=== PATIENT | male | born 1970 | race Caucasian/White ===

== ENCOUNTER 2018-04-29 20:25 | Emergency (ER) | payer BC ==
[2018-04-29 20:46] VITALS: BP 146/74; PULSE 87; RESP 18; TEMP 97.5
--- NOTE | 2018-04-29 21:16 | ED ---
General Adult HPI - General Chief complaint: Upper Respiratory Infection Stated complaint: Congestion, Coughing up a lot Time Seen by Provider: 04/29/18 20:39 Source: patient, RN notes reviewed Mode of arrival: ambulatory Limitations: no limitations - History of Present Illness Initial comments: This is a 48-year-old male who presents to the emergency department with chief complaint of cough. Patient reports a history of smoking. He states that 3 weeks ago he was treated by his primary care provider for bronchitis. He states he did a course of steroids and was placed on an antibiotic, however he is unsure of the name. He states that he will never take steroids again as they made him "ignorant and mean." Patient states that he was noticing improvement in his symptoms and then developed pain in the bases of both his lungs 1 week ago. He states that this is now improving. He states he continues to have a productive cough of white sputum and needs a note to be excused from work for the next couple of days to rest. Patient denies any fevers or chills, chest pain or shortness of breath, runny nose or sore throat, abdominal pain, nausea or vomiting. - Related Data Previous Rx's Medication Instructions Recorded Albuterol Inhaler [Ventolin Hfa 1 - 2 puff INHALATION Q6HR #1 04/29/18 Inhaler] inhaler Allergies Allergy/AdvReac Type Severity Reaction Status Date / Time No Known Allergies Allergy Verified 04/29/18 20:46 Review of Systems ROS Statement: Those systems with pertinent positive or pertinent negative responses have been documented in the HPI. ROS Other: All systems not noted in ROS Statement are negative. Past Medical History Past Medical History: No Reported History History of Any Multi-Drug Resistant Organisms: None Reported Past Surgical History: No Surgical Hx Reported Past Psychological History: Anxiety Smoking Status: Current every day smoker Past Alcohol Use History: Occasional Past Drug Use History: Marijuana General Exam - General Exam Comments Initial Comments: General: Awake and alert, well-developed; in no apparent distress. HEENT: Head atraumatic, normocephalic. Pupils are equal, round and reactive to light. Extraocular movements intact. Oropharynx moist without erythema or exudate. Neck: Supple. Normal ROM. Cardiovascular: Regular rate and rhythm. No murmurs, rubs or gallops. Chest symmetrical. Respiratory: Lungs clear to auscultation bilaterally. No wheezes, rales or rhonchi. Normal respiratory effort with no use of accessory muscles. Musculoskeletal: Normal ROM, no tenderness bilateral upper and lower extremities. Ambulating normally. Skin: [place], warm and dry without rashes or lesions. Neurological: Alert and oriented x3. CN II-XII grossly intact. Speech is fluent and answers are appropriate. No focal neuro deficits. Psychiatric: Normal mood and affect. No overt signs of depression or anxiety noted. Limitations: no limitations Course Vital Signs 04/29/18 04/29/18 20:42 20:47 Temperature 97.5 F L Pulse Rate 87 Respiratory 18 18 Rate Blood Pressure 146/74 O2 Sat by Pulse 96 Oximetry Medical Decision Making - Medical Decision Making This is a 48-year-old male who presents to the emergency department with chief complaint of cough. Patient is a current, every day smoker. He reports a productive cough of white sputum for the past 3 weeks. He was treated for bronchitis when symptoms first started with antibiotics and steroids. Patient states that he continues to have a productive cough. Denies any fevers or chills. Lungs are clear to auscultation, however due to patient's persistent symptoms I did recommend a chest x-ray. Patient refuses. He does not want an x -ray performed. Patient will be provided with an albuterol inhaler. He vital signs are stable and he is in no acute distress. He will be discharged home at this time. Patient is in agreement with plan and voices understanding. All questions were answered. Disposition Clinical Impression: Bronchitis Disposition: HOME SELF-CARE Condition: Good Instructions: Chronic Bronchitis (ED) Additional Instructions: Please take medications as prescribed. Please follow up with primary care provider within 1-2 days. Return to emergency department if symptoms should worsen or any concerns arise. Prescriptions: Albuterol Inhaler [Ventolin Hfa Inhaler] 1 - 2 puff INHALATION Q6HR #1 inhaler Is patient prescribed a controlled substance at d/c from ED?: No Referrals: Teresa Owens MD [Primary Care Provider] - 1-2 days Time of Disposition: 21:15
== END 2018-04-29 21:15 | disposition home or self-care (01) ==
LOC: EC 20:25
DX: J40 Bronchitis, not specified as acute or chronic (principal); F17.200 Nicotine dependence, unspecified, uncomplicated
CPT/HCPCS: 99283

== ENCOUNTER → 2022-02-27 | Outpatient (CLI) | payer OTHER ==
[2022-02-27 14:40] LABS: HCT 48.2 % (39.6-50.0); HGB 16.2 g/dL (13.0-17.0); MCHC 33.6 g/dL (32.0-37.0); MCV 95.1 fL (80.0-97.0); Mean Platelet Volume 10.2 fL (9.5-12.2); NRBC Per 100 WBC 0 /100 WBCS (0.0-0.0); Platelet Count 178 X 10*3/uL (140-440); RBC 5.07 X 10*6/uL (4.40-5.60); RDW 13.4 % (11.5-14.5); WBC 8.14 X 10*3/uL (4.50-10.00)
[2022-02-27 15:14] LABS: T4, Free (Free Thyroxine) 1.49 ng/dL (0.800-1.800)
[2022-02-27 16:05] LABS: African American GFR (CKD) 112.6 (60.0-200.0); Albumin 4.8 g/dL (3.8-4.9); Albumin/Globulin Ratio 2.29 (1.60-3.17); Anion Gap 14.7 mmol/L (10.00-18.00); BUN/Creat Ratio 11.67 Ratio (12.00-20.00); Blood Urea Nitrogen 10.5 mg/dL (9.0-27.0); Calcium 9.7 mg/dL (8.7-10.3); Carbon Dioxide 22.3 mmol/L (20.0-27.5); Globulin 2.1 g/dL (1.6-3.3); Non-African American GFR(CKD) 97.2 (60.0-200.0); Potassium 4.1 mmol/L (3.5-5.5); Total Bilirubin 1.4 mg/dL (0.30-1.20); Total Protein 6.9 g/dL (6.2-8.2)
== END | disposition home or self-care (01) ==
LOC: LABWHC1 08:02
PROVIDERS: ATTEND Psychiatry & Neurology Neurology
DX: M62.81 Muscle weakness (generalized) (principal); R53.83 Other fatigue; F10.20 Alcohol dependence, uncomplicated
CPT/HCPCS: 36415; 80053; 82607; 84207; 84439; 84443; 84481; 85027

== ENCOUNTER 2022-04-27 05:07 | Inpatient (IN) | payer OTHER ==
[2022-04-27] MEDS ORDERED: MORPHINE SULFATE 4 MG/ML SYRINGE IV STA (05:13)
--- NOTE | 2022-04-27 05:15 | ED ---
General Adult HPI - General Stated complaint: Fall Time Seen by Provider: 04/27/22 05:07 - History of Present Illness Initial comments: Dictation was produced using [employer] dictation software. please excuse any grammatical, word or spelling errors. Chief Complaint: 52-year-old male presents with right shoulder pain after fall History of Present Illness: Is a 52-year-old male he denies any history. Patient states he's in emergency Department after hurting his right shoulder. Patient states he was walking when he lost his balance. Caused him to fall forwards however he landed on his back. She complaining of right shoulder pain. Denies any head pain or neck pain. No loss of consciousness. Patient does not take any anticoagulation medications. Lives at home with his sister. He is able to care for himself. Patient reports that he uses a cane in order to help him work out. The ROS documented in this emergency department record has been reviewed and confirmed by me. Those systems with pertinent positive or negative responses have been documented in the HPI. All other systems are other negative and/or noncontributory. PHYSICAL EXAM: General Impression: Alert and oriented x3, not in acute distress HEENT: Normocephalic atraumatic, extra-ocular movements intact, pupils equal and reactive to light bilaterally, mucous membranes moist. Cardiovascular: Heart regular rate and rhythm Chest: Able to complete full sentences, no retractions, no tachypnea Abdomen: abdomen soft, non-tender, non-distended, no organomegaly Right shoulder: Significant for tenderness to the right anterior humerus head. right upper extremity is neurovascularly intact Musculoskeletal: Pulses present and equal in all extremities, no peripheral edema Motor: no focal deficits noted Neurological: CN II-XII grossly intact, no focal motor or sensory deficits noted Skin: Intact with no visualized rashes Psych: Normal affect and mood ED course: 52-year-old male presents emergency department for right shoulder pain after fall. Signs upon arrival are within acceptable limits. Patient given IV morphine. Shoulder x-ray shows impacted humeral neck fracture. Patient placed in a coaptation splint and arm sling. After arm sling was placed at around 5:50 AM patient states that he did feel like he has a mild headache from the fall. CT of the brain shows no intracranial injuries. There is some cerebral atrophy. right occipital lobe suggestive of a 2 cm infarct. Also evidence of old lacunar infarct. No neck injuries. EMS when they arrived reports that patient's living situation is very disheveled. He is unkempt and likely unable to care for himself. He is being covered in his urine and was lying down on the ground for several hours until his sister called EMS. Multiple attempts were made in order to try and contact patient's son and sister who he supposedly lives with. Was unsuccessful contacting patient's family by phone. At this point it is unclear if patient has a safe disposition. Does have this evidence of infarct to the brain that is unclear of its acuity. Patient be admitted with consultation to neurology. CBC and metabolic panel is unremarkable. - Related Data Home Medications Medication Instructions Recorded Confirmed No Known Home Medications 04/27/22 04/27/22 Allergies Allergy/AdvReac Type Severity Reaction Status Date / Time No Known Allergies Allergy Verified 04/27/22 12:08 Review of Systems ROS Statement: Those systems with pertinent positive or pertinent negative responses have been documented in the HPI. ROS Other: All systems not noted in ROS Statement are negative. Past Medical History Past Medical History: No Reported History History of Any Multi-Drug Resistant Organisms: None Reported Past Surgical History: No Surgical Hx Reported Past Psychological History: Anxiety Past Alcohol Use History: Occasional Past Drug Use History: Marijuana Course Vital Signs 04/27/22 04/27/22 04/27/22 05:13 08:41 12:47 Temperature 98.6 F Pulse Rate 90 101 H 88 Respiratory 15 16 15 Rate Blood Pressure 102/66 106/65 110/61 O2 Sat by Pulse 99 100 100 Oximetry Procedures - Orthopedic Splinting/Casting Injury #1 Side: right Upper Extremity Injury Location: shoulder Upper Extremity Immobilizer: sling/shoulder immobilizer (coapt splint) Medical Decision Making - Lab Data Result diagrams: 05/02/22 08:37 05/02/22 08:37 Disposition Clinical Impression: Humerus fracture, Debility Disposition: ADMITTED IP TO THIS HOSP Is patient prescribed a controlled substance at d/c from ED?: Yes If prescribed controlled substance>3 days was MAPS reviewed?: Prescribed <3 Days
--- NOTE | 2022-04-27 05:32 | XR ---
EXAMINATION TYPE: XR shoulder limited RT DATE OF EXAM: 04/27/2022 COMPARISON: NONE HISTORY: Shoulder pain TECHNIQUE: 2 views FINDINGS: Exam limited by the positioning. There is impacted humeral neck fracture. No dislocation. S capula is intact. IMPRESSION: Impacted humeral neck fracture. No dislocation
[2022-04-27] MEDS ORDERED: ACET/COD 300 MG/30 MG STARTER PACK 6 TAB BTL PO STA (05:51)
--- NOTE | 2022-04-27 06:39 | CT ---
EXAMINATION TYPE: CT brain cspine wo con DATE OF EXAM: 04/27/2022 COMPARISON: None HISTORY: fall CT DLP: 1370.1 mGycm Automated exposure control for dose reduction was used. Images of the brain and cervical spine obtained with no contrast. Ventricles of normal size. There is no mass effect nor midline shift. There is some hypodensity in th e medial anterior right occipital lobe. No evidence of intracranial hemorrhage. There is some hypoden sity also in the right posterior frontal lobe white matter. There is some mild posterior temporal lob e white matter hypodensity bilaterally that could be microvascular ischemia. The cervical vertebra have fairly normal spacing and alignment. There is mild spurring of the endplat es. Posterior elements are intact. There is mild cervical hypertrophic facet arthropathy. No compress ion fracture. The skull base is intact. There is normal aeration of the mastoid sinuses. IMPRESSION: There is some cerebral atrophy. There is hypodensity in the right occipital lobe suggestive of a 2 cm infarct. There is also some subtle hypodensity right posterior frontal lobe white matter suggestive of lacunar infarct. There is likely some microvascular ischemia. Hypertrophic mild degenerative disc changes in the cervical spine. No fracture.
[2022-04-27] MEDS ORDERED: NALOXONE 0.4 MG/ML 1 ML VIAL IV PRN (06:58)
[2022-04-27] MEDS ORDERED: ONDANSETRON 4 MG/2 ML VIAL IVP PRN (06:58)
[2022-04-27] MEDS ORDERED: ASPIRIN 81 MG PO STA (07:02)
[2022-04-27 08:29] LABS: Basophils # (A) 0.1 k/uL (0-0.2); Basophils % (A) 1 %; Eosinophils # (A) 0.1 k/uL (0-0.7); Eosinophils % (A) 1 %; HGB 13.7 gm/dL (13.0-17.5); Lymphocytes # (A) 0.5 k/uL (1.0-4.8); Lymphocytes % (A) 4 %; MCHC 34.2 g/dL (31.0-37.0); MCV 93.7 fL (80.0-100.0); Mean Platelet Volume 7.9; Monocytes # (A) 0.6 k/uL (0-1.0); Monocytes % (A) 6 %; Neutrophils # (A) 9.5 k/uL (1.3-7.7); Neutrophils % (A) 88 %; Platelet Count 163 k/uL (150-450); RBC 4.27 m/uL (4.30-5.90); RDW 13.5 % (11.5-15.5); WBC 10.8 k/uL (3.8-10.6)
[2022-04-27] MEDS: SODIUM CHLORIDE 0.9% 1,000 ML IV SCH (08:39)
[2022-04-27] MEDS: MORPHINE SULFATE 4 MG/ML SYRINGE IV PRN ×3 (09:36→20:55)
[2022-04-27 11:11] LABS: African American GFR (CKD) >90 (>60 ml/min/1.73 sqM); Alcohol <10 mg/dL; Anion Gap 15 mmol/L; Blood Urea Nitrogen 16 mg/dL (9-20); Calcium 9.1 mg/dL (8.4-10.2); Carbon Dioxide 20 mmol/L (22-30); Chloride 101 mmol/L (98-107); Creatine Kinase 148 U/L (55-170); Glucose 119 mg/dL (74-99); Non-African American GFR(CKD) 86 (>60 ml/min/1.73 sqM); Potassium 4.3 mmol/L (3.5-5.1); Sodium 136 mmol/L (137-145)
--- NOTE | 2022-04-27 11:28 | P.CNOR ---
History of Present Illness - [facility] Consult date: 04/27/22 Requesting physician: Davion Fam Consult reason: other (humerus fracture) History of present illness: Patient is a 52-year-old male who presents to the emergency department this morning after falling onto his right shoulder. Patient states when he was walking a loss balance and fell onto his right shoulder. Patient rates the pain as 8/10. Patient denies radiation of pain. Patient denies pain in any other locations. Patient denies any other medical history/previous orthopedic surgery. Patient denies hitting his head/losing consciousness. Patient says he does live with his sister at home. Patient says he does use a cane during ambulation sometimes. Patient denies chest pain, fever, shortness breath, nausea, vomiting, change in vision, loss of bowel/bladder control. Patient denies any numbness tingling down the right upper extremity Past Medical History Past Medical History: No Reported History History of Any Multi-Drug Resistant Organisms: None Reported Past Surgical History: No Surgical Hx Reported Past Psychological History: Anxiety Past Alcohol Use History: Occasional Past Drug Use History: Marijuana Medications and Allergies Home Medications Medication Instructions Recorded Confirmed Type Albuterol Inhaler [Ventolin Hfa 1 - 2 puff INHALATION Q6HR #1 04/29/18 Rx Inhaler] inhaler Allergies Allergy/AdvReac Type Severity Reaction Status Date / Time No Known Allergies Allergy Verified 04/27/22 05:12 Physical Examination Inspection: Negative for any open fractures, significant erythema/ulcers. Some ecchymosis present around the right shoulder Sensation: Sensation is equal, symmetric, bilaterally intact throughout the upper and lower extremities Palpation: Patient does have moderate TTP diffusely throughout the right shoulder especially in the proximal humeral region. Nontender to palpation throughout rest exam Range of motion: Full range of motion bilateral lower extremities and left upper extremity on exam. Full range of motion in right wrist flexion/extension. Limit range of motion and right shoulder due to fracture and right elbow extension/flexion due to pain referred from shoulder Motor: 5/5 in all major motor groups in bilateral lower extremities and left upper extremity. 3/5 in resisted right elbow flexion/extension and right wrist flexion/extension. Right shoulder motor exam not performed due to fracture/pain . Neurovascular status: Radial pulse intact, 2+ bilaterally. Cap refill under 3 seconds in digits of upper extremities. Special tests: Negative Homans bilaterally; negative Jaime bilaterally; ne gative clonus bilaterally Results - Labs Labs: Abnormal Lab Results - Last 24 Hours (Table) 04/27/22 Range/Units 08:15 WBC 10.8 H (3.8-10.6) k/uL RBC 4.27 L (4.30-5.90) m/uL Neutrophils # 9.5 H (1.3-7.7) k/uL Lymphocytes # 0.5 L (1.0-4.8) k/uL H & H 04/27/22 Range/Units 08:15 Hgb 13.7 (13.0-17.5) gm/dL Hct 40.0 (39.0-53.0) % Result Diagrams: 04/27/22 08:15 04/27/22 10:30 Assessment and Plan Assessment: 1. Proximal humerus fracture, right upper extremity Plan: 1. Proximal humerus fracture, right upper extremity - at this time we recommend patient to use sling to right upper extremity at all times. At this time orthopedics is not recommending any emergent/urgent orthopedic surgical intervention. We do recommend conservative measures via the use of a sling and pain control. Patient may follow-up in the outpatient setting with Dr. Romero for further evaluation of right shoulder. We'll continue to follow patient during his stay in hospital. 2. Appreciate medical management 3. Pain management - Tylenol; morphine 4. DVT prophylaxis - mechanical 5. GI recs 6. PT/OT - nonweightbearing right upper extremity. Maintain right upper e xtremity in sling at all times. 7. Appreciate consult Time with Patient: Less than 30
--- NOTE | 2022-04-27 14:16 | US ---
EXAMINATION TYPE: US carotid duplex BILAT DATE OF EXAM: 04/27/2022 COMPARISON: NONE CLINICAL HISTORY: CVA. TECHNIQUE: Carotid duplex ultrasound examination. Indirect Doppler criteria was utilized. FINDINGS: EXAM MEASUREMENTS: RIGHT: Peak Systolic Velocity (PSV) cm/sec ----- Right CCA: 54.9 ----- Right ICA: 78.2 ----- Right ECA: 72.9 ICA/CCA ratio: 1.4 RIGHT: End Diastole cm/sec ----- Right CCA: 13.9 ----- Right ICA: 28.4 ----- Right ECA: 11.0 LEFT: Peak Systolic Velocity (PSV) cm/sec ----- Left CCA: 60.1 ----- Left ICA: 87.5 ----- Left ECA: 66.8 ICA/CCA ratio: 1.5 LEFT: End Diastole cm/sec ----- Left CCA: 16.5 ----- Left ICA: 32.5 ----- Left ECA: 11.9 VERTEBRALS (direction of flow): Right Vertebral: Antegrade Left Vertebral: Antegrade Rhythm: Normal [employer] NOTES: Mild atherosclerotic plaque with no significant velocity increases. IMPRESSION: There is antegrade flow in the vertebral arteries. The images and measurements suggest less than 10% stenosis in both internal carotid arteries. Criteria for Assigning % of Stenosis / Diameter reduction (Estimation based on the indirect measurements of the internal carotid artery velocities (ICA PSV). 1. Normal (no stenosis)=ICA PSV < 125 cm/s: ratio < 2.0: ICA EDV<40 cm/s. 2. Less than 50% stenosis=ICA PSV < 125 cm/s: ratio < 2.0: ICA EDV<40 cm/s. 3. 50 to 69% stenosis=ICA PSV of 125 to 230 cm/s: ration 2.0 ? 4.0: ICA EDV 40-100 cm/s. 4. Greater than 70% stenosis to near occlusion= ICA PSV > 230 cm/s: ratio > 4.0: ICA EDV > 100 cm/s. 5. Near occlusion= ICA PSV velocities may be low or undetectable: variable ratio and ICA EDV. 6. Total occlusion=unable to detect flow.
--- NOTE | 2022-04-27 15:01 | P.HPIM ---
History of Present Illness H&P Date: 04/27/22 Leo James, is a 52-year-old male who presented to the [facility] emergency room with a chief complaint of confusion and mental status changes. Patient had a fall backwards few days ago and x-ray of the right shoulder revealed impacted humeral neck fracture, family states that patient was confused. Computed tomography scan of the brain revealed evidence of hypodensity in the right occipital lobe suggestive of an infarct and subtle hypodensity in the right posterior frontal lobe white matter suggestive of lacunar infarct patient and family he denies any previous history of strokes, he was admitted to telemetry floor and neurology consultation was requested. Patient denies any significant past medical history in the past, he denies any history of hypertension hyperlipidemia, or any history of coronary artery disease strokes or seizures in the past, he is not maintained on any home medications, he states that he smokes a few cigarettes per day, he used to smoke more in the past but has been cutting down, he denies any alcohol abuse. He was evaluated in the emergency room vital examination on presentation revealed a temperature of 98.6 pulse 90 respiration 15 blood pressure 102/66 pulse ox 99% on room air Laboratory data revealed a white blood count of 10.8 hemoglobin 13.7 platelet count 163 sodium 136 potassium 4.3 chloride 101 CO2 20 BUN 16 creatinine 1.2 g lucose level 119 Patient was admitted to telemetry floor for further evaluation and treatment Past Medical History Past Medical History: No Reported History History of Any Multi-Drug Resistant Organisms: None Reported Past Surgical History: No Surgical Hx Reported Past Psychological History: Anxiety Past Alcohol Use History: Occasional Past Drug Use History: Marijuana Medications and Allergies Home Medications Medication Instructions Recorded Confirmed Type No Known Home Medications 04/27/22 04/27/22 History Allergies Allergy/AdvReac Type Severity Reaction Status Date / Time No Known Allergies Allergy Verified 04/27/22 12:08 Physical Exam Vitals: Vital Signs Temp Pulse Resp BP Pulse Ox 04/27/22 12:47 88 15 110/61 100 04/27/22 08:41 101 H 16 106/65 100 04/27/22 05:13 98.6 F 90 15 102/66 99 Intake and Output 04/26/22 04/27/22 04/27/22 22:59 06:59 14:59 Other: Weight 72.575 kg In general patient is alert and oriented x3 in no distress HEENT head normocephalic and atraumatic Neck is supple no JVD no goiter no lymphadenopathy no carotid bruit Chest examination is clear to auscultation no crackles no wheezing Cardiac exam reveals regular heart sounds S1 and S2 no gallops no murmurs Abdomen is soft nontender no organomegaly with normal bowel sounds Extremity exam reveals no edema no cyanosis or clubbing Neurological examination reveals no gross focal deficits Results CBC & Chem 7: 04/27/22 08:15 04/27/22 10:30 Labs: Abnormal Lab Results - Last 24 Hours (Table) 04/27/22 04/27/22 Range/Units 08:15 10:30 WBC 10.8 H (3.8-10.6) k/uL RBC 4.27 L (4.30-5.90) m/uL Neutrophils # 9.5 H (1.3-7.7) k/uL Lymphocytes # 0.5 L (1.0-4.8) k/uL Sodium 136 L (137-145) mmol/L Carbon Dioxide 20 L (22-30) mmol/L Glucose 119 H (74-99) mg/dL Assessment and Plan Plan: 1. Confusion with mental status changes, cause is not entirely clear, but to be related to areas of stroke on computed tomography scan however, strokes may be old and other causes of mental status changes need to be ruled out, at this time will check urine toxicology screen, check urine analysis and chest x-ray 2. Evidence of 2 areas of stroke on computed tomography scan of the brain, exact timing of the strokes is not clear, patient denies any knowledge of any previous stroke, neurology consultation has been requested, echocardiogram and carotid Doppler were ordered, aspirin and Lipitor were added to medication regimen, will follow closely. 3. Mild leukocytosis, will check chest x-ray and urine analysis 4. Evidence of impacted right humeral neck fracture, orthopedic consultation requested Medication and labs were reviewed For DVT prophylaxis SCD stockings Will follow in a.m.
--- NOTE | 2022-04-27 15:39 | MR ---
EXAMINATION TYPE: MR brain wo con DATE OF EXAM: 04/27/2022 COMPARISON: None HISTORY: Multiple strokes, ? subacute or old, fall Multiplanar multiecho imaging of the brain without contrast. There is some cerebral cortical atrophy. There is no mass effect or midline shift. There are some mil d patchy areas of increased signal on the diffusion images in the centrum semiovale bilaterally. Thes e also have increased signal on the T2 and FLAIR images. No evidence of intracranial hemorrhage. Brai nstem is intact. There is extensive coalescent increased signal on the T2 and FLAIR images in the white matter of both temporal lobes and also extension into the left occipital lobe. There is also involvement of the fro ntal lobe white matter. The cerebellum is intact. There is thinning of the corpus callosum with areas of increased signal. Sella turcica is intact. No evidence of orbital mass. IMPRESSION: Extensive white matter signal changes could relate to severe demyelinating disease. There is involvem ent of the corpus callosum. Microvascular ischemia not excluded. Increased signal in the centrum semi ovale bilaterally on the diffusion images could BE acute disease.
--- NOTE | 2022-04-27 15:45 | XR ---
EXAMINATION TYPE: XR chest 2V DATE OF EXAM: 04/27/2022 COMPARISON: NONE HISTORY: Confusion TECHNIQUE: 2 view FINDINGS: Heart is normal. Lungs are clear. Diaphragm is normal. Bony thorax is intact. IMPRESSION: Normal chest
--- NOTE | 2022-04-27 15:49 | CA ---
Transthoracic Echo Report Name: Leo James Age: 52 Gender: M : 1970 Exam Date: 04/27/2022 12:38 Exam Location: [facility] Ht (in): 73 Wt (lb): 180 Ordering Physician: Thelma Kirk MD Attending/Referring Phys: Data Center Engineer Vee Causey RDCS Procedure CPT: Indications: multiple strokes, embolic Cardiac Hx: Technical Quality: Technically difficult study Contrast 1: Lumason Total Dose (mL): 4 Contrast 2: Total Dose (mL): MEASUREMENTS (Male / Female) Normal Values 2D ECHO LV Diastolic Diameter PLAX 4.2 cm 4.2 - 5.9 / 3.9 - 5.3 cm LV Systolic Diameter PLAX 2.4 cm IVS Diastolic Thickness 1.0 cm 0.6 - 1.0 / 0.6 - 0.9 cm LVPW Diastolic Thickness 1.1 cm 0.6 - 1.0 / 0.6 - 0.9 cm LV Relative Wall Thickness 0.5 RV Internal Dim ED PLAX 3.0 cm M-MODE Aortic Root Diameter MM 3.9 cm LA Systolic Diameter MM 2.1 cm LA Ao Ratio MM 0.5 AV Cusp Separation MM 1.9 cm DOPPLER AV Peak Velocity 81.2 cm/s AV Peak Gradient 2.6 mmHg LVOT Peak Velocity 60.8 cm/s LVOT Peak Gradient 1.5 mmHg MV Area PHT 3.0 cm??? Mitral E Point Velocity 43.6 cm/s Mitral A Point Velocity 55.6 cm/s Mitral E to A Ratio 0.8 MV Deceleration Time 251.7 ms TR Peak Velocity 139.3 cm/s TR Peak Gradient 7.8 mmHg FINDINGS Left Ventricle Normal Left ventricular size, wall thickness, systolic function with no obvious regional wall motion abnormalities. Normal Left ventricular diastolic filling pattern. Left ventricular ejection fraction is estimated at 55-60 %. Right Ventricle Normal right ventricular size and function. Right ventricular systolic pressure within normal limits. Right Atrium Right atrium not well visualized. Left Atrium Normal left atrial size. Mitral Valve No mitral stenosis, regurgitation or prolapse. Aortic Valve No aortic valve stenosis or regurgitation. Tricuspid Valve Mild tricuspid regurgitation. Pulmonic Valve Trace pulmonic regurgitation. Pericardium No pericardial effusion. Aorta Normal size aortic root and proximal ascending aorta. CONCLUSIONS Technically difficult study for interpretation Normal left ventricular systolic function Previewed by: Dr. Tyron Murray MD (Electronically Signed) Final Date: 27 April 2022 15:48
[2022-04-27] MEDS: ATORVASTATIN 20 MG TAB PO SCH (20:52)
[2022-04-27 21:21] LABS: Appearance,Urine Cloudy (Clear); Bacteria,Urine Occasional /hpf; Bilirubin,Urine 1+ (Negative); Blood,Urine Negative (Negative); Budding Yeast,Urine Moderate /hpf; Color,Urine Yellow; Glucose,Urine (UA) Negative (Negative); Hyaline Casts,Urine 6 /lpf (0-2); Ketones,Urine 2+ (Negative); Leukocyte Esterase,Urine Negative (Negative); Mucus,Urine Moderate /hpf; Nitrite,Urine Negative (Negative); PH, Urine 5.5 (5.0-8.0); Protein,Urine 1+ (Negative); RBC,Urine 3 /hpf (0-5); Specific Gravity,Urine 1.025 (1.001-1.035); Squamous Epithelial Cell,Urine <1 /hpf (0-4); WBC,Urine 6 /hpf (0-5)
--- NOTE | 2022-04-27 22:58 | P.CNNES ---
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 As per EMS flow sheet when they arrived, found patient laying face down on the floor. Patient mentioned that he was walking, and his legs give out and he fell face first into the liter box for the cat. Patient denied any loss of consciousness, head or neck or back pain. He was complaining of right shoulder pain 10/10. The pain improved after he was moved out of his right shoulder, with pain level down to 3/10. Patient's blood pressure at the scene was 111/62 pulse is 70, respirations 16 and saturation 99%. Patient at present concurs that yesterday he was standing, when his legs gave out and he fell, landing on the right side. He denies any loss of consciousness or passing out. No tongue bite. He claims that he did lose bowel control. Patient says that he has suffered from falls in the past, but not like this. He states that the last fall occurred several weeks ago, when he was going into the shower and he slipped. He did not hurt himself. He could not tell if he had any more falls besides these 2 mentioned above. He lives with his sister. His sister called the ambulance. Patient's blood test shows normal hemoglobin, WBC 10.8. Patient's last A1c 5.3 on 10/24/2021. Chem-7 was normal on 02/27/2022. B12 480, vitamin B6 was 6, TFTs normal. CT head showed some cerebral atrophy. There is hypodensity in the right occipital lobe suggestive of a 2 cm infarct. There is also some subtle hypodensity right posterior frontal lobe white matter suggestive of lacunar infarct. There is likely some microvascular ischemia. I personally reviewed computed tomography scan of the head, and appears chronic in nature. No acute ischemic stroke. There are 3 areas, one involving the right medial occipital lobe, small area involving the left occipital subcortical region and also chronic ischemic change involving the right posterior temporal region. CT of the cervical spine showed hypertrophic mild degenerative disc changes in the cervical spine. No fracture. EKG shows sinus tachycardia with occasional ventricle or premature complexes. Shoulder x-ray shows impacted humeral neck fracture. No dislocation. Patient's home medications not available. Patient states that he has smoked 1 pack per day since in his 20s. Just in the last 1 year, he has cut back to half pack per day. He quit marijuana 2 years ago. Denies any drug use. He was a heavy drinker for many years, stopped alcoholism one year ago. Denies diabetes or any previous history of stroke TIA. Review of Systems Constitutional: Denies chills, Denies fever Eyes: denies blurred vision, denies pain Ears: deny: decreased hearing Ears, nose, mouth and throat: Denies headache, Denies sore throat Cardiovascular: Denies chest pain, Denies shortness of breath Respiratory: Denies cough Gastrointestinal: Denies abdominal pain, Denies diarrhea, Denies nausea, Denies vomiting Musculoskeletal: Denies myalgias Musculoskeletal: right: shoulder pain, shoulder swelling Integumentary: Denies pruritus, Denies rash Neurological: Reports as per HPI Psychiatric: Denies anxiety, Denies depression Endocrine: Denies fatigue, Denies weight change Hematologic/Lymphatic: Denies easy bruising Past Medical History Past Medical History: No Reported History History of Any Multi-Drug Resistant Organisms: None Reported Past Surgical History: No Surgical Hx Reported Past Psychological History: Anxiety Past Alcohol Use History: Occasional Past Drug Use History: Marijuana Medications and Allergies Home Medications Medication Instructions Recorded Confirmed Type No Known Home Medications 04/27/22 04/27/22 History Allergies Allergy/AdvReac Type Severity Reaction Status Date / Time No Known Allergies Allergy Verified 04/27/22 12:08 Physical Examination - Vital Signs Vital Signs: Vital Signs Temp Pulse Resp BP Pulse Ox 04/27/22 08:41 101 H 16 106/65 100 04/27/22 05:13 98.6 F 90 15 102/66 99 Intake and Output 04/26/22 04/27/22 04/27/22 22:59 06:59 14:59 Other: Weight 72.575 kg Patient is a middle aged male, in no acute distress. Patient is alert awake oriented to time place and person. Speech and language functions are normal. Patient can name and repeat very well. No aphasia or dysarthria. Attention, concentration and fund of knowledge is adequate. Detail cognitive function testing deferred. On cranial nerve examination, pupils are equal, round and reacting to light, visual raya are full on confrontation, with no neglect on double simultaneous stimulation. Extraocular muscles are intact with no nystagmus. Face is symmetric, tongue protrudes to the midline. Palatal elevation and sensation normal, hearing and shoulder shrug normal, facial sensation normal. On muscle strength testing, there is no pronator drift on the left. Right upper extremity not tested because of shoulder fracture. The strength is normal in the left upper extremity distally and proximally. In the lower extent but his hip flexion is 4 to 4- bilaterally. Ankle dorsiflexion 5 bilaterally with the left ankle appears spastic. Deep tendon reflexes are (right/left) biceps NC/2+, brachioradialis NC/2+, knee 3/3, ankle 1/1 and plantars upgoing bilaterally. Sensory to touch is equal with no neglect on double simultaneous stimulation. Cerebellar function showed no ataxia for [id number] testing in the left upper limb. No dysdiadochokinesia. Some questionable ataxia for [id number]-[id number] testing on either side. Tone and bulk of muscles normal. Gait deferred.. On general examination, there is no carotid bruit or murmur, S1-S2 audible. Chest is clear on consultation. Abdomen is soft nontender. No organomegaly, bowel sounds present. Peripheral pulses are present. No edema. Results - Laboratory Findings CBC and BMP: 04/27/22 08:15 04/27/22 10:30 Abnormal Lab Findings: Abnormal Labs 04/27/22 08:15 WBC 10.8 H RBC 4.27 L Neutrophils # 9.5 H Lymphocytes # 0.5 L Assessment and Plan Assessment: * Status post fall from legs giving out, with subsequent right shoulder fracture. * Abnormal brain computed tomography scan, with evidence of multiple old areas of ischemia. * Tobacco use Plan: * Patient will undergo MRI of the brain evaluate for acute to subacute stroke. * Carotid Doppler to rule out stenosis * 2-D echo with bubble study * Hemoglobin A1c 5.3 on 10/24/2021 * Lipid panel with cholesterol 190, LDL 109, HDL 62 and triglycerides 90. Patient will be started on Lipitor 20 mg daily. * Patient has received loading dose of aspirin 324 mg in the ER. We will start Start aspirin 81 mg daily for stroke prevention. * DVT prophylaxis as per orthopedic surgery. * Recommended tobacco cessation. * Neurology will follow. Thank you for the consult.
[2022-04-28] MEDS: MORPHINE SULFATE 4 MG/ML SYRINGE IV PRN (04:13)
[2022-04-28] MEDS: SODIUM CHLORIDE 0.9% 1,000 ML IV SCH (04:14)
--- NOTE | 2022-04-28 08:57 | P.PN ---
Subjective Progress Note Date: 04/28/22 Principal diagnosis: Right proximal humerus fracture Patient was seen at bedside this morning was splint and sling to right upper extremity. Patient says he only has pain in his right shoulder at this time. Patient denies any other locations of pain currently. Patient denies any numbness/tingling in his right hand. Patient says there is some radiation of pain down the right arm to his elbow. Patient denies chest pain, fever, shortness breath, nausea, vomiting, change in vision, loss of bowel/bladder control. Objective - Vital Signs Vital signs: Vital Signs Temp 99.6 F 04/28/22 04:07 Pulse 90 04/28/22 04:07 Resp 15 04/28/22 04:07 BP 114/68 04/28/22 04:07 Pulse Ox 99 04/28/22 04:07 FiO2 Intake & Output 04/27/22 04/28/22 04/28/22 18:59 06:59 18:59 Intake Total 630 Balance 630 Weight 72.575 kg Intake: Intake, IV Titration 150 Amount Sodium Chloride 0.9% 1, 150 000 ml @ 20 mls/hr IV . Q24H [facility] Rx#:[id number] Oral 480 Other: Voiding Method Toilet # Voids 1 - Exam Inspection: Negative for any open fractures, significant erythema/ulcers. Some ecchymosis present around the right shoulder. Sling and splint present on RUE Sensation: Sensation is equal, symmetric, bilaterally intact throughout the upper and lower extremities Palpation: Patient does have moderate TTP diffusely throughout the right shoulder especially in the proximal humeral region. Nontender to palpation throughout rest exam Range of motion: Full range of motion bilateral lower extremities and left upper extremity on exam. Full range of motion in right wrist flexion/extension. Limit range of motion and right shoulder due to fracture and right elbow extension/flexion due to pain referred from shoulder Motor: 5/5 in all major motor groups in bilateral lower extremities and left upper extremity. 3/5 in resisted right wrist flexion/extension. Right shoulder/elbow motor exam unable to be performed due to splint/fracture. Neurovascular status: Radial pulse intact, 2+ bilaterally. Cap refill under 3 seconds in digits of upper extremities. Special tests: Negative Homans bilaterally; negative Jaime bilaterally; negative clonus bilaterally - Labs CBC & Chem 7: 04/27/22 08:15 04/27/22 10:30 Labs: Abnormal Lab Results - Last 24 Hours (Table) 04/27/22 04/27/22 Range/Units 10:30 20:05 Sodium 136 L (137-145) mmol/L Carbon Dioxide 20 L (22-30) mmol/L Glucose 119 H (74-99) mg/dL Urine Protein 1+ H (Negative) Urine Ketones 2+ H (Negative) Urine Bilirubin 1+ H (Negative) Urine WBC 6 H (0-5) /hpf Urine Bacteria Occasional H (None) /hpf Hyaline Casts 6 H (0-2) /lpf Urine Mucus Moderate H (None) /hpf Urine Yeast (Budding) Moderate H (None) /hpf Assessment and Plan Assessment: 1. Proximal humerus fracture, right upper extremity Plan: 1. Proximal humerus fracture, right upper extremity - at this time we recommend patient to use sling to right upper extremity at all times. At this time orthopedics is not recommending any emergent/urgent orthopedic surgical intervention. We do recommend conservative measures via the use of a sling and pain control. Patient may follow-up in the outpatient setting with Dr. Romero for further evaluation of right shoulder. Patient stable from orthopedic standpoint for discharge home. Orthopedics is signing off at this time. Please do not hesitate to contact us for any further questions. 2. Appreciate medical management 3. Pain management - Tylenol; IV meds only if necessary 4. DVT prophylaxis - mechanical 5. GI recs 6. PT/OT - nonweightbearing right upper extremity. Maintain right upper extremity in sling at all times. 7. Appreciate consult Time with Patient: Less than 30
[2022-04-28] MEDS: ASPIRIN 81 MG PO SCH (10:04)
--- NOTE | 2022-04-28 10:49 | P.PN ---
Subjective Progress Note Date: 04/28/22 Leo James, is a 52-year-old male who presented to the [facility] emergency room with a chief complaint of confusion and mental status changes. Patient had a fall backwards few days ago and x-ray of the right shoulder revealed impacted humeral neck fracture, family states that patient was confused. Computed tomography scan of the brain revealed evidence of hypodensity in the right occipital lobe suggestive of an infarct and subtle hypodensity in the right posterior frontal lobe white matter suggestive of lacunar infarct patient and family he denies any previous history of strokes, he was admitted to telemetry floor and neurology consultation was requested. Patient denies any significant past medical history in the past, he denies any history of hypertension hyperlipidemia, or any history of coronary artery disease strokes or seizures in the past, he is not maintained on any home medications, he states that he smokes a few cigarettes per day, he used to smoke more in the past but has been cutting down, he denies any alcohol abuse. He was evaluated in the emergency room vital examination on presentation revealed a temperature of 98.6 pulse 90 respiration 15 blood pressure 102/66 pulse ox 99% on room air Laboratory data revealed a white blood count of 10.8 hemoglobin 13.7 platelet count 163 sodium 136 potassium 4.3 chloride 101 CO2 20 BUN 16 creatinine 1.2 glucose level 119 Patient was admitted to telemetry floor for further evaluation and treatment On 04/28/2022 patient is alert and oriented 3. Patient was evaluated by orthopedic services sling in place patient will follow-up outpatient with orthopedics for further management no surgical intervention at this time. MRI was completed awaiting neurology follow-up review. Current vital signs temp 99.2, heart rate 99, respiratory rate 18, blood pressure 114/60 with a pulse ox of 99% on room air area patient reports improvement with generalized weakness. At this time patient denies chest pain or shortness breath. Patient denies nausea vomiting or diarrhea. Patient denies any urinary burning or frequency Objective - Vital Signs Vital signs: Vital Signs Temp 99.2 F 04/28/22 08:00 Pulse 89 04/28/22 08:00 Resp 18 04/28/22 08:00 BP 92/54 04/28/22 08:00 Pulse Ox 100 04/28/22 08:00 FiO2 Intake & Output 04/27/22 04/28/2222 18:59 06:59 18:59 Intake Total 630 Balance 630 Weight 72.575 kg Intake: Intake, IV Titration 150 Amount Sodium Chloride 0.9% 1, 150 000 ml @ 20 mls/hr IV . Q24H [facility] Rx#:[id number] Oral 480 Other: Voiding Method Toilet # Voids 1 1 - Exam In general patient is alert and oriented x3 in no distress HEENT head normocephalic and atraumatic Neck is supple no JVD no goiter no lymphadenopathy no carotid bruit Chest examination is clear to auscultation no crackles no wheezing Cardiac exam reveals regular heart sounds S1 and S2 no gallops no murmurs Abdomen is soft nontender no organomegaly with normal bowel sounds Extremity exam reveals no edema no cyanosis or clubbing Neurological examination reveals no gross focal deficits - Labs CBC & Chem 7: 04/27/22 08:15 04/27/22 10:30 Labs: Abnormal Lab Results - Last 24 Hours (Table) 04/27/22 04/27/22 Range/Units 10:30 20:05 Sodium 136 L (137-145) mmol/L Carbon Dioxide 20 L (22-30) mmol/L Glucose 119 H (74-99) mg/dL Urine Protein 1+ H (Negative) Urine Ketones 2+ H (Negative) Urine Bilirubin 1+ H (Negative) Urine WBC 6 H (0-5) /hpf Urine Bacteria Occasional H (None) /hpf Hyaline Casts 6 H (0-2) /lpf Urine Mucus Moderate H (None) /hpf Urine Yeast (Budding) Moderate H (None) /hpf Assessment and Plan Plan: 1. Confusion with mental status changes, cause is not entirely clear, but to be related to areas of stroke on computed tomography scan however, strokes may be old and other causes of mental status changes need to be ruled out, at this time will check urine toxicology screen, check urine analysis and chest x-ray 2. Evidence of 2 areas of stroke on computed tomography scan of the brain, exact timing of the strokes is not clear, patient denies any knowledge of any previous stroke, neurology consultation has been requested, echocardiogram and carotid Doppler were ordered, aspirin and Lipitor were added to medication regimen, will follow closely. 3. Mild leukocytosis, will check chest x-ray and urine analysis. Chest x-ray negative 4. Evidence of impacted right humeral neck fracture, orthopedic consultation requested Medication and labs were reviewed Chest x-ray negative Carotid Doppler suggests less than 10% stenosis MRI completed For DVT prophylaxis SCD stockings Will follow in a.m.
[2022-04-28 12:11] LABS: Urine Alcohol Negative (Negative); Urine Barbiturate Negative (Negative); Urine Cocaine Negative (Negative); Urine Methadone Negative (Negative); Urine Opiates Positive (Negative); Urine Phencyclidine Negative (Negative)
[2022-04-28 13:44] LABS: Basophils % (A) 1 %; Eosinophils % (A) 0 %; HCT 32.2 % (39.0-53.0); HGB 11.1 gm/dL (13.0-17.5); Lymphocytes # (A) 1.1 k/uL (1.0-4.8); Lymphocytes % (A) 22 %; MCH 32.2 pg (25.0-35.0); MCHC 34.6 g/dL (31.0-37.0); MCV 92.9 fL (80.0-100.0); Mean Platelet Volume 8.7; Monocytes # (A) 0.5 k/uL (0-1.0); Monocytes % (A) 10 %; Neutrophils # (A) 3.4 k/uL (1.3-7.7); Neutrophils % (A) 65 %; Platelet Count 118 k/uL (150-450); RBC 3.46 m/uL (4.30-5.90); WBC 5.2 k/uL (3.8-10.6)
[2022-04-28 13:56] LABS: ALT 13 U/L (4-49); AST 17 U/L (17-59); African American GFR (CKD) >90 (>60 ml/min/1.73 sqM); Albumin 3.3 g/dL (3.5-5.0); Alkaline Phosphatase 42 U/L (38-126); Anion Gap 9 mmol/L; Blood Urea Nitrogen 15 mg/dL (9-20); Carbon Dioxide 21 mmol/L (22-30); Chloride 102 mmol/L (98-107); Glucose 75 mg/dL (74-99); Non-African American GFR(CKD) >90 (>60 ml/min/1.73 sqM); Potassium 4.1 mmol/L (3.5-5.1); Sodium 132 mmol/L (137-145); Total Bilirubin 1.1 mg/dL (0.2-1.3); Total Protein 5.1 g/dL (6.3-8.2)
[2022-04-28] MEDS: PYRIDOXINE 50 MG TAB PO SCH (17:41)
[2022-04-28] MEDS: ATORVASTATIN 20 MG TAB PO SCH (20:07)
--- NOTE | 2022-04-28 21:27 | P.PN ---
Subjective Progress Note Date: 04/28/22 Patient was seen for a follow-up. Patient is laying comfortably in the bed. He appears more confused today as compared to yesterday as per examination below. Patient's telemetry monitoring showing sinus rhythm. No arrhythmia. Objective - Vital Signs Vital signs: Vital Signs Temp 99.2 F 04/28/22 08:00 Pulse 78 04/28/22 12:00 Resp 18 04/28/22 12:00 BP 84/54 04/28/22 12:00 Pulse Ox 98 04/28/22 12:00 FiO2 Intake & Output 04/27/22 04/28/22 04/28/22 18:59 06:59 18:59 Intake Total 630 Balance 630 Weight 72.575 kg Intake: Intake, IV Titration 150 Amount Sodium Chloride 0.9% 1, 150 000 ml @ 20 mls/hr IV . Q24H [facility] Rx#:[id number] Oral 480 Other: Voiding Method Toilet Toilet # Voids 1 1 - Exam Patient is alert and awake. Speech and language functions are normal. He thinks he is at home. He could not tell name of the current president. He knows he is in [place], [place], but could not tell what building he is in. Speech and language functions are normal. No aphasia or dysarthria. Cranial nerves examination shows pupils are equal round and reactive to light, visual raya are full on confrontation with no neglect. Extraocular muscles are intact. Face is symmetric and tongue protrudes the midline. Hearing and shoulder shrug normal. Facial sensation normal. Muscle strength is no pronator drift in the left arm. Right upper extremity not tested because of shoulder fracture. Strength is normal in the left upper extremity. In the lower extremities hip flexion is slightly weak, ankle dorsiflexion is normal. Reflexes are 3 at the knees, 1+ ankles and plantars upg oing bilaterally. Sensory to touch is equal. Cerebellar function showed no ataxia for [id number] testing in the left upper limb. Abdomen soft nontender. - Labs CBC & Chem 7: 04/28/22 12:42 04/28/22 12:42 Labs: Abnormal Lab Results - Last 24 Hours (Table) 04/27/22 04/27/22 04/28/22 Range/Units 20:05 20:05 12:42 RBC 3.46 L (4.30-5.90) m/uL Hgb 11.1 L (13.0-17.5) gm/dL Hct 32.2 L (39.0-53.0) % Plt Count 118 L (150-450) k/uL Sodium (137-145) mmol/L Carbon Dioxide (22-30) mmol/L Calcium (8.4-10.2) mg/dL Total Protein (6.3-8.2) g/dL Albumin (3.5-5.0) g/dL Urine Protein 1+ H (Negative) Urine Ketones 2+ H (Negative) Urine Bilirubin 1+ H (Negative) Urine WBC 6 H (0-5) /hpf Urine Bacteria Occasional H (None) /hpf Hyaline Casts 6 H (0-2) /lpf Urine Mucus Moderate H (None) /hpf Urine Yeast (Budding) Moderate H (None) /hpf Urine Opiates Screen Positive A (Negative) 04/28/22 Range/Units 12:42 RBC (4.30-5.90) m/uL Hgb (13.0-17.5) gm/dL Hct (39.0-53.0) % Plt Count (150-450) k/uL Sodium 132 L (137-145) mmol/L Carbon Dioxide 21 L (22-30) mmol/L Calcium 8.0 L (8.4-10.2) mg/dL Total Protein 5.1 L (6.3-8.2) g/dL Albumin 3.3 L (3.5-5.0) g/dL Urine Protein (Negative) Urine Ketones (Negative) Urine Bilirubin (Negative) Urine WBC (0-5) /hpf Urine Bacteria (None) /hpf Hyaline Casts (0-2) /lpf Urine Mucus (None) /hpf Urine Yeast (Budding) (None) /hpf Urine Opiates Screen (Negative) Assessment and Plan Assessment: * Status post fall from legs giving out, with subsequent right shoulder fracture. * Altered mental status, with intermittent confusion, possible delirium versus metabolic encephalopathy. Rule out cognitive impairment due to [employer] demyelinating disease. Rule out partial seizures * Abnormal brain scan. MRI of the brain highly suspicious for demyelinating disease like MS. * Tobacco use Plan: * MRI of the brain without contrast revealed extensive white matter signal changes, could relate to severe demyelinating disease. There is involvement of the corpus callosum. Microvascular ischemia not excluded. Increased signal in the centrum semiovale bilaterally on the diffusion images could be acute disease. I personally reviewed MRI of the brain. The abnormal signal in the diffusion weighted is possible T2 shine through. On FLAIR images, there is hyperintense signal in the left cerebellum, left posterior temporal, bilateral significant periventricular as well as subcortical white matter le senthil, many of them are perpendicular to the lateral ventricle, highly suggestive of demyelinating disease like MS. * Carotid Doppler revealed antegrade flow in the vertebral arteries. Less than 10% stenosis of both ICA. * 2-D echo with bubble study was technically difficult study for interpretation. Normal left-ventricular systolic function with EF 55-60%. Left atrial size is normal. * Hemoglobin A1c 5.3 on 10/24/2021 * Lipid panel with cholesterol 190, LDL 109, HDL 62 and triglycerides 90. Patient will be started on Lipitor 20 mg daily. * Patient's B12 480, folate 8.3 and vitamin B6 6. Patient will be started on B12, folate and B6 replacement. * Patient has received loading dose of aspirin 324 mg in the ER. Continue aspirin 81 mg daily for stroke prevention. * DVT prophylaxis: We'll start heparin 5000 units subcu every 12 hours. * Recommended tobacco cessation. * Dr. Evaristo Ventura Will resume neurology service in the morning. PLAN: * MRI of the brain with contrast. * MRI of the cervical spine with and without contrast to evaluate for MS, and to evaluate for enhancing/active lesions. * Lumbar puncture to evaluate for MS. * RPR, HIV testing. Patient consented for HIV testing. * EEG for mental confusion, rule out seizure activity.
[2022-04-28] MEDS: CYANOCOBALAMIN 500 MCG TAB PO SCH (23:23)
[2022-04-28] MEDS: FOLIC ACID 1 MG TAB PO SCH (23:23)
[2022-04-29] MEDS: ASPIRIN 81 MG PO SCH (07:49)
[2022-04-29 08:29] LABS: Basophils # (A) 0.1 k/uL (0-0.2); Basophils % (A) 1 %; Eosinophils # (A) 0.1 k/uL (0-0.7); Eosinophils % (A) 1 %; HGB 12.5 gm/dL (13.0-17.5); Lymphocytes # (A) 1.5 k/uL (1.0-4.8); Lymphocytes % (A) 28 %; MCH 32.1 pg (25.0-35.0); MCHC 34.8 g/dL (31.0-37.0); MCV 92.2 fL (80.0-100.0); Mean Platelet Volume 8.8; Monocytes # (A) 0.6 k/uL (0-1.0); Monocytes % (A) 11 %; Neutrophils # (A) 2.8 k/uL (1.3-7.7); Neutrophils % (A) 55 %; Platelet Count 121 k/uL (150-450); RBC 3.91 m/uL (4.30-5.90); RDW 13.9 % (11.5-15.5); WBC 5.1 k/uL (3.8-10.6)
[2022-04-29 08:55] LABS: ALT 14 U/L (4-49); African American GFR (CKD) >90 (>60 ml/min/1.73 sqM); Albumin 3.6 g/dL (3.5-5.0); Anion Gap 10 mmol/L; Blood Urea Nitrogen 10 mg/dL (9-20); Calcium 8.4 mg/dL (8.4-10.2); Carbon Dioxide 21 mmol/L (22-30); Chloride 102 mmol/L (98-107); Glucose 65 mg/dL (74-99); Non-African American GFR(CKD) >90 (>60 ml/min/1.73 sqM); Sodium 133 mmol/L (137-145); Total Bilirubin 1.4 mg/dL (0.2-1.3); Total Protein 5.6 g/dL (6.3-8.2)
[2022-04-29 08:56] LABS: AST 26 U/L (17-59); Alkaline Phosphatase 46 U/L (38-126); Potassium 4.1 mmol/L (3.5-5.1)
[2022-04-29] MEDS: FOLIC ACID 1 MG TAB PO SCH (09:19)
[2022-04-29] MEDS: PYRIDOXINE 50 MG TAB PO SCH (09:19)
[2022-04-29] MEDS: CYANOCOBALAMIN 500 MCG TAB PO SCH (09:19)
[2022-04-29] MEDS: ACETAMINOPHEN TAB 325 MG TAB PO PRN (09:20)
--- NOTE | 2022-04-29 11:07 | P.PN ---
Subjective Progress Note Date: 04/29/22 I am seeing the patient for the first time during this hospital visit. As stated that he had a fall and he trapped on an object while dealing with his cat according to him. As result he fell and has pain over the right shoulder from the fall. He had MRI Brain which seemed suspicious for demyelinating disease like MS and has pending more MRI in our facility. Please refer to Dr. Kirk's note. Objective - Vital Signs Vital signs: Vital Signs Temp 98.4 F 04/29/22 08:00 Pulse 97 04/29/22 08:00 Resp 17 04/29/22 08:00 BP 95/64 04/29/22 08:00 Pulse Ox 98 04/29/22 08:00 FiO2 Intake & Output 04/28/22 04/29/22 04/29/22 18:59 06:59 18:59 Output Total 200 650 450 Balance -200 -650 -450 Output: Urine 200 650 450 Other: Voiding Method Toilet Toilet Toilet # Voids 1 - Exam GENERAL: The patient is lying in bed and is in mild acute distress. NEUROLOGICAL: Higher mental function: The patient is awake, alert, oriented to self, place and time. He is slow responding. Patient is following simple commands. No aphasia and no neglect. Cranial nerves: The pupils are round, equal and reactive to light . Visual raya are full to confrontation throughout. Extraocular movement is intact no nystagmus is noted. Facial sensation is normal to touch throughout. The facial strength is normal throughout. HTongue is midline and moved [id number] without any difficulty. No dysarthria is noted. Shoulder shrug is normal bilaterally. Motor: Right shoulder and right upper extremity strength is deferred because of pain. Otherwsie left upper extremity is 5/5. The lowers had about 4- to 4 proximally bilaterally (appears right slighter stronger than left). Ankles are 5- Bilaterally. Cerebellum: Normal finger to nose bilaterally. Sensation: Sensation is normal to touch throughout. Reflexes (right/left): Patelllar are 3+. Otherwise 2+ throughout except right upper since deferred because of pain. SOME OF THE WORK-UP DURING THIS HOSPITAL VISIT: * MRI of the brain without contrast revealed extensive white matter signal changes, could relate to severe demyelinating disease. There is involvement of the corpus callosum. Microvascular ischemia not excluded. Increased signal in the centrum semiovale bilaterally on the diffusion images could be acute disease. I personally reviewed MRI of the brain. The abnormal signal in the diffusion weighted is possible T2 shine through. On FLAIR images, there is hyperintense signal in the left cerebellum, left posterior temporal, bilateral significant periventricular as well as subcortical white matter lesion, many of them are perpendicular to the lateral ventricle, highly suggestive of demyelinating disease like MS. * Carotid Doppler revealed antegrade flow in the vertebral arteries. Less than 10% stenosis of both ICA. * 2-D echo with bubble study was technically difficult study for interpretation. Normal left-ventricular systolic function with EF 55-60%. Left atrial size is normal. * Hemoglobin A1c 5.3 on 10/24/2021 * Lipid panel with cholesterol 190, LDL 109, HDL 62 and triglycerides 90. * Patient's B12 480, folate 8.3 and vitamin B6 6. - Labs CBC & Chem 7: 04/29/22 08:03 04/29/22 08:03 Labs: Abnormal Lab Results - Last 24 Hours (Table) 04/27/22 04/28/22 04/28/22 Range/Units 20:05 12:42 12:42 RBC 3.46 L (4.30-5.90) m/uL Hgb 11.1 L (13.0-17.5) gm/dL Hct 32.2 L (39.0-53.0) % Plt Count 118 L (150-450) k/uL Sodium 132 L (137-145) mmol/L Carbon Dioxide 21 L (22-30) mmol/L Glucose (74-99) mg/dL Calcium 8.0 L (8.4-10.2) mg/dL Total Bilirubin (0.2-1.3) mg/dL Total Protein 5.1 L (6.3-8.2) g/dL Albumin 3.3 L (3.5-5.0) g/dL Urine Opiates Screen Positive A (Negative) 04/29/22 04/29/22 Range/Units 08:03 08:03 RBC 3.91 L (4.30-5.90) m/uL Hgb 12.5 L (13.0-17.5) gm/dL Hct 36.0 L (39.0-53.0) % Plt Count 121 L (150-450) k/uL Sodium 133 L (137-145) mmol/L Carbon Dioxide 21 L (22-30) mmol/L Glucose 65 L (74-99) mg/dL Calcium (8.4-10.2) mg/dL Total Bilirubin 1.4 H (0.2-1.3) mg/dL Total Protein 5.6 L (6.3-8.2) g/dL Albumin (3.5-5.0) g/dL Urine Opiates Screen (Negative) Assessment and Plan Assessment: * Status post fall from legs giving out, with subsequent right shoulder fracture. * Altered mental status, with intermittent confusion, possible delirium versus metabolic encephalopathy. 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 Rule out partial seizures * Abnormal brain scan. MRI of the brain highly suspicious for demyelinating di sease like MS. * Tobacco use Plan: * MRI of the brain without contrast revealed extensive white matter signal changes, could relate to severe demyelinating disease. There is involvement of the corpus callosum. Microvascular ischemia not excluded. Increased signal in the centrum semiovale bilaterally on the diffusion images could be acute disease. I personally reviewed MRI of the brain. The abnormal signal in the diffusion weighted is possible T2 shine through. On FLAIR images, there is hyperintense signal in the left cerebellum, left posterior temporal, bilateral significant periventricular as well as subcortical white matter lesion, many of them are perpendicular to the lateral ventricle, highly suggestive of demyelinating disease like MS. * Dr. Kirk has requested: MRI of the brain with contrast, MRI of the cervical spine with and without contrast to evaluate for MS, and to evaluate for enhancing/active lesions, Lumbar puncture to evaluate for MS, RPR, HIV testing. EEG for mental confusion, rule out seizure activity. * Dr. Kirk has recommended to continue ASA 81mg daily and Lipitor 20mg daily for stroke prevention and was started on B12, folate and B6 replacement. * DVT prophylaxis: Continue heparin 5000 units subcu every 12 hours. * Will defer the rest of medical management to the primary team. Evaristo Ventura M.D. Neuro-Hospitalist Time with Patient: Less than 30
[2022-04-29 11:16] LABS: RBC Morphology Normal
--- NOTE | 2022-04-29 14:00 | MR ---
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 Diffusion weighted imaging was performed. C2-C3: No evidence for degenerative disc disease. No disc bulge/herniation or protrusion. No Canal stenosis. Foramina are patent bilaterally. C3-C4: No evidence for degenerative disc disease. No disc bulge/herniation or protrusion. No Canal stenosis. Foramina are patent bilaterally. C4-C5: Loss of disc height and signal is present, is endplate discogenic marrow signal change. Building Services Engineer ior extension of endplate disc complex causes some anterior mass effect on the thecal sac. There is f oraminal encroachment bilaterally due to uncovertebral joint hypertrophy and facet arthropathy change . No significant spinal stenosis. C5-C6: Loss of disc height signal is consistent with disc desiccation and degenerative disc disease. There is some minimal posterior extension endplate disc complex causing minimal anterior mass effect on the thecal sac. C6-C7: No evidence for degenerative disc disease. No disc bulge/herniation or protrusion. No Canal stenosis. Foramina are patent bilaterally. C7-T1: No evidence for degenerative disc disease. No disc bulge/herniation or protrusion. No Canal stenosis. Foramina are patent bilaterally. Cervical segments are intact. There is normal alignment. Cervical spinal cord show some possible in creased signal on T2-weighted sequences, somewhat ill-defined at the C3, C4, C5 and possibly C7 level , not as well-defined on the axial images as on sagittal T2. There is no abnormal enhancement. Crani overtebral junction relationships are within normal limits. Multilevel spondylosis is present. IMPRESSION: Findings may represent abnormal cord signal, there is no evident abnormal enhancement however. Degene rative disc disease, foraminal encroachment
--- NOTE | 2022-04-29 14:00 | MR ---
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 Diffusion weighted imaging was performed. C2-C3: No evidence for degenerative disc disease. No disc bulge/herniation or protrusion. No Canal stenosis. Foramina are patent bilaterally. C3-C4: No evidence for degenerative disc disease. No disc bulge/herniation or protrusion. No Canal stenosis. Foramina are patent bilaterally. C4-C5: Loss of disc height and signal is present, is endplate discogenic marrow signal change. General Surgeon ior extension of endplate disc complex causes some anterior mass effect on the thecal sac. There is f oraminal encroachment bilaterally due to uncovertebral joint hypertrophy and facet arthropathy change . No significant spinal stenosis. C5-C6: Loss of disc height signal is consistent with disc desiccation and degenerative disc disease. There is some minimal posterior extension endplate disc complex causing minimal anterior mass effect on the thecal sac. C6-C7: No evidence for degenerative disc disease. No disc bulge/herniation or protrusion. No Canal stenosis. Foramina are patent bilaterally. C7-T1: No evidence for degenerative disc disease. No disc bulge/herniation or protrusion. No Canal stenosis. Foramina are patent bilaterally. Cervical segments are intact. There is normal alignment. Cervical spinal cord show some possible in creased signal on T2-weighted sequences, somewhat ill-defined at the C3, C4, C5 and possibly C7 level , not as well-defined on the axial images as on sagittal T2. There is no abnormal enhancement. Crani overtebral junction relationships are within normal limits. Multilevel spondylosis is present. IMPRESSION: Findings may represent abnormal cord signal, there is no evident abnormal enhancement however. Degene rative disc disease, foraminal encroachment
--- NOTE | 2022-04-29 14:32 | MR ---
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 FINDINGS: Abnormal enhancement is present in the pericallosal white matter to the right of midline, f ocus measures approximately 6 mm on sagittal image 98, axial image #20, additional pericallosal focus of enhancement present on the left sagittal image 59, axial image 22 measures 6 mm. Along the corpus callosum there is a focus of abnormal enhancement also noted on sagittal image #71, axial image #20. Focus of ring enhancement is present on sagittal image #90, axial image 18 measuring 16 mm in cephal ad to caudal dimension by 15 mm in AP dimension by 15 mm in transverse dimension, areas described cor respond to areas of abnormal signal on precontrast images. Additional foci of abnormal enhancement ar e present along the inferior margin of the right frontal lobe anteriorly, sagittal image 90 measuring 7.5 mm, coronal image #11. Pericallosal activity also noted anteriorly on coronal image #12, sagitta l image #88 measuring 5 mm of normal enhancement. Area within the cerebellum the left of midline show s abnormal enhancement measuring 8 mm to 9 mm in greatest transverse dimension by approximately 7 mm in cephalad to caudal dimension by 4 to 5 mm in AP dimension. Multiple areas of abnormal signal on pr econtrast images do not show postcontrast enhancement. IMPRESSION: Multiple foci of abnormal enhancement consistent with patient's multiple sclerosis
[2022-04-29 16:44] LABS: HIV 2 AB Non-Reactive (Non-Reactive); HIV AB P24 Non-Reactive (Non-Reactive); HIV P24 AG Non-Reactive (Non-Reactive)
[2022-04-29] MEDS: SODIUM CHLORIDE 0.9% 1,000 ML IV SCH (18:06)
[2022-04-29] MEDS: ATORVASTATIN 20 MG TAB PO SCH (20:21)
--- NOTE | 2022-04-29 23:53 | EEG ---
ELECTROENCEPHALOGRAM REPORT CLINICAL HISTORY: This is a 52-year-old gentleman with altered mental status. The video EEG is obtained to evaluate for seizure and epileptiform activity. RELEVANT MEDICATIONS: The patient is not on any antiepileptic drugs. EEG TYPE: A routine 21-channel EEG is performed with video using the 10/20 electrode placement system. DESCRIPTION: Wakefulness is only obtained. During awake state, the background consists of low to moderate voltage of 7 to 8 Hz that is well modulated, well sustained. There is no physiological sleep architecture seen. There is no focal slowing. There is a mild to moderate electrode artifact throughout the study. Interictal and ictal is none. ACTIVATION PROCEDURE: Photic stimulation did not evoke a posterior driving response. There is no abnormality during the photic stimulation. Hyperventilation is not performed. CLINICAL INTERPRETATION: This is an abnormal routine EEG. The background slowing is suggestive of mild encephalopathy. Otherwise, there is no focal slowing, epileptiform discharges, or seizure on the EEG. Clinical correlation is recommended. FRANCISCO / DANIEL: [id number] / RICARDO
--- NOTE | 2022-04-30 08:51 | P.PN ---
Subjective Progress Note Date: 04/29/22 Leo James, is a 52-year-old male who presented to the [facility] emergency room with a chief complaint of confusion and mental status changes. Patient had a fall backwards few days ago and x-ray of the right shoulder revealed impacted humeral neck fracture, family states that patient was confused. Computed tomography scan of the brain revealed evidence of hypodensity in the right occipital lobe suggestive of an infarct and subtle hypodensity in the right posterior frontal lobe white matter suggestive of lacunar infarct patient and family he denies any previous history of strokes, he was admitted to telemetry floor and neurology consultation was requested. Patient denies any significant past medical history in the past, he denies any history of hypertension hyperlipidemia, or any history of coronary artery disease strokes or seizures in the past, he is not maintained on any home medications, he states that he smokes a few cigarettes per day, he used to smoke more in the past but has been cutting down, he denies any alcohol abuse. He was evaluated in the emergency room vital examination on presentation revealed a temperature of 98.6 pulse 90 respiration 15 blood pressure 102/66 pulse ox 99% on room air Laboratory data revealed a white blood count of 10.8 hemoglobin 13.7 platelet count 163 sodium 136 potassium 4.3 chloride 101 CO2 20 BUN 16 creatinine 1.2 glucose level 119 Patient was admitted to telemetry floor for further evaluation and treatment On 04/28/2022 patient is alert and oriented 3. Patient was evaluated by orthopedic services sling in place patient will follow-up outpatient with orthopedics for further management no surgical intervention at this time. MRI was completed awaiting neurology follow-up review. Current vital signs temp 99.2, heart rate 99, respiratory rate 18, blood pressure 114/60 with a pulse ox of 99% on room air area patient reports improvement with generalized weakness. At this time patient denies chest pain or shortness breath. Patient denies nausea vomiting or diarrhea. Patient denies any urinary burning or frequency. On 04/29/2022 patient is alert, confused in no distress. Patient was evaluated by orthopedic services sling in place patient will follow-up outpatient with orthopedics for further management no surgical intervention at this time. Current vital signs temp 99.2, heart rate 99, respiratory rate 18, blood pressure 114/60 with a pulse ox of 99% on room air area patient reports improvement with generalized weakness. At this time patient denies chest pain or shortness breath. Patient denies nausea vomiting or diarrhea. Patient denies any urinary burning or frequency, MRI results and neurology input reviewed, awaiting MRI with contrast, EEG and LP. Objective - Vital Signs Vital signs: Vital Signs Temp 99.9 F H 04/29/22 03:50 Pulse 85 04/29/22 03:50 Resp 18 04/29/22 03:50 BP 108/62 04/29/22 03:50 Pulse Ox 99 04/29/22 03:50 FiO2 Intake & Output 04/28/22 04/29/22 04/29/22 18:59 06:59 18:59 Output Total 200 650 Balance -200 -650 Output: Urine 200 650 Other: Voiding Method Toilet Toilet # Voids 1 - Exam In general patient is alert and oriented x3 in no distress HEENT head normocephalic and atraumatic Neck is supple no JVD no goiter no lymphadenopathy no carotid bruit Chest examination is clear to auscultation no crackles no wheezing Cardiac exam reveals regular heart sounds S1 and S2 no gallops no murmurs Abdomen is soft nontender no organomegaly with normal bowel sounds Extremity exam reveals no edema no cyanosis or clubbing Neurological examination reveals no gross focal deficits - Labs CBC & Chem 7: 04/28/22 12:42 04/28/22 12:42 Labs: Abnormal Lab Results - Last 24 Hours (Table) 04/27/22 04/28/22 04/28/22 Range/Units 20:05 12:42 12:42 RBC 3.46 L (4.30-5.90) m/uL Hgb 11.1 L (13.0-17.5) gm/dL Hct 32.2 L (39.0-53.0) % Plt Count 118 L (150-450) k/uL Sodium 132 L (137-145) mmol/L Carbon Dioxide 21 L (22-30) mmol/L Calcium 8.0 L (8.4-10.2) mg/dL Total Protein 5.1 L (6.3-8.2) g/dL Albumin 3.3 L (3.5-5.0) g/dL Urine Opiates Screen Positive A (Negative) Assessment and Plan Plan: 1. Confusion with mental status changes, cause is not entirely clear, but to be related to areas of stroke on computed tomography scan however, strokes may be old and other causes of mental status changes need to be ruled out, at this time will check urine toxicology screen, check urine analysis and chest x-ray 2. Evidence of 2 areas of stroke on computed tomography scan of the brain, exact timing of the strokes is not clear, patient denies any knowledge of any previous stroke, neurology consultation has been requested, echocardiogram and carotid Doppler were ordered, aspirin and Lipitor were added to medication regimen, will follow closely. 3. Mild leukocytosis, will check chest x-ray and urine analysis. Chest x-ray negative 4. Evidence of impacted right humeral neck fracture, orthopedic consultation requested Medication and labs were reviewed Chest x-ray negative Carotid Doppler suggests less than 10% stenosis MRI completed For DVT prophylaxis SCD stockings Will follow in a.m.
[2022-04-30 09:05] LABS: Basophils % (A) 1 %; Eosinophils # (A) 0.1 k/uL (0-0.7); Eosinophils % (A) 3 %; HCT 33.2 % (39.0-53.0); HGB 12.2 gm/dL (13.0-17.5); Lymphocytes # (A) 1.7 k/uL (1.0-4.8); Lymphocytes % (A) 41 %; MCH 33.7 pg (25.0-35.0); MCHC 36.7 g/dL (31.0-37.0); MCV 91.9 fL (80.0-100.0); Mean Platelet Volume 8.4; Monocytes # (A) 0.3 k/uL (0-1.0); Monocytes % (A) 8 %; Neutrophils # (A) 1.8 k/uL (1.3-7.7); Neutrophils % (A) 46 %; Platelet Count 125 k/uL (150-450); RBC 3.62 m/uL (4.30-5.90); RDW 13.5 % (11.5-15.5)
[2022-04-30 09:20] LABS: ALT 15 U/L (4-49); AST 22 U/L (17-59); African American GFR (CKD) >90 (>60 ml/min/1.73 sqM); Albumin 3.4 g/dL (3.5-5.0); Alkaline Phosphatase 45 U/L (38-126); Anion Gap 9 mmol/L; Blood Urea Nitrogen 9 mg/dL (9-20); Calcium 8.2 mg/dL (8.4-10.2); Carbon Dioxide 23 mmol/L (22-30); Chloride 104 mmol/L (98-107); Glucose 78 mg/dL (74-99); Non-African American GFR(CKD) >90 (>60 ml/min/1.73 sqM); Potassium 3.6 mmol/L (3.5-5.1); Sodium 136 mmol/L (137-145); Total Protein 5.2 g/dL (6.3-8.2)
[2022-04-30] MEDS ORDERED: LACTATED RINGERS 1,000 ML IV ONE (10:04)
[2022-04-30] MEDS ORDERED: MIDAZOLAM 2 MG/2 ML VIAL ONE (10:12)
--- NOTE | 2022-04-30 10:28 | P.PCN ---
Date of Procedure: 04/30/22 Description of Procedure: Procedure: Lumbar Puncture . Preoperative Diagnoses: rule out demyelinating disease Postoperative Diagnosis: rule out demyelinating disease Anesthesia: IV sedation with Versed and local Anesthesia provided by nurse Moderate sedation was provided Anesthesia supervising time began at 1017 Anesthesia supervising time and at at 1029 Condition: stable. Complications: none. Description of the procedure: Patient was consented in the preoperative area we discussed the risks benefits and alternatives to the procedure. The patient was Brought the patient into the procedure room and she was placed in the left lateral decubitus position. The back was cleansed with iodine 3. The L2-L3 level was palpated At that point lidocaine 1% was used to anesthetize the skin, total of 5 mL was used. A 22 gauge spinal needle was advanced until spinal fluid was aspirated through the needle and a three - way stop cock. Opening pressure was 7, closing pressure was 9. CSF was clear. CSF was obtained and sent off to laboratory for e xamination. Band-Aid was placed after the procedure the patient was instructed to lay flat for the next few hours. The patient was discharged from the PACU in stable condition.
--- NOTE | 2022-04-30 11:33 | P.PN ---
Subjective Progress Note Date: 04/30/22 The patient is seen at bedside and feels about the same. Denies any new neurological issues. Per the nurse he is schedule for Lumbar puncture today. Objective - Vital Signs Vital signs: Vital Signs Temp 96.8 F L 04/30/22 10:36 Pulse 70 04/30/22 10:36 Resp 17 04/30/22 10:36 BP 90/54 04/30/22 10:36 Pulse Ox 96 04/30/22 10:36 FiO2 Intake & Output 04/29/22 04/30/22 04/30/22 18:59 06:59 18:59 Intake Total 50 Output Total 1050 280 Balance -1050 -280 50 Intake: IV 50 Output: Urine 1050 280 Other: Voiding Method Toilet Toilet Toilet - Exam GENERAL: The patient is lying in bed and is in mild acute distress. NEUROLOGICAL: Higher mental function: The patient is awake, alert, oriented to self, place and time. He is slow responding. Patient is following simple commands. No aphasia and no neglect. Cranial nerves: The pupils are round, equal and reactive to light . Visual raya are full to confrontation throughout. Extraocular movement is intact no nystagmus is noted. Facial sensation is normal to touch throughout. The facial strength is normal throughout. HTongue is midline and moved [id number] without any difficulty. No dysarthria is noted. Shoulder shrug is normal bilaterally. Motor: Right shoulder and right upper extremity strength is deferred because of pain. Otherwsie left upper extremity is 5/5. The lowers had about 4- to 4 proximally bilaterally (appears right slighter stronger than left). Ankles are 5- Bilaterally. Cerebellum: Normal finger to nose bilaterally. Sensation: Sensation is normal to touch throughout. Reflexes (right/left): Patelllar are 3+. Otherwise 2+ throughout except right upper since deferred because of pain. SOME OF THE WORK-UP DURING THIS HOSPITAL VISIT: * MRI of the brain without contrast revealed extensive white matter signal changes, could relate to severe demyelinating disease. There is involvement of the corpus callosum. Microvascular ischemia not excluded. Increased signal in the centrum semiovale bilaterally on the diffusion images could be acute disease. I personally reviewed MRI of the brain. The abnormal signal in the diffusion weighted is possible T2 shine through. On FLAIR images, there is hyperintense signal in the left cerebellum, left posterior temporal, bilateral significant periventricular as well as subcortical white matter lesion, many of them are perpendicular to the lateral ventricle, highly suggestive of demyelinating disease like MS. * MRI of the brain with his reported as multiple foci of abnormal enhancement consistent with the patient multiple sclerosis. I personally reviewed the MRI and I agree with the report. * MRI of the cervical spine is reported as finding may represent abnormal cord signal, there is no evidence of abnormal enhancement however. Degenerative disc disease, formidable encroachment. It is reported that shows some possible increased signal on T2 weighted sequence that's ill-defined over the C3, C4, C5 and possibly C7. I personally reviewed the MRI and I agree with t he report and I agree that there possibly is a cord that signal but does not enhance with contrast from the C3 to C6 region. * Carotid Doppler revealed antegrade flow in the vertebral arteries. Less than 10% stenosis of both ICA. * Routine EEG is abnormal. The background slowing suggestive of mild encephalopathy. Otherwise there is no focal slowing, epileptiform form discharges or seizure on the EEG. * 2-D echo with bubble study was technically difficult study for interpretation. Normal left-ventricular systolic function with EF 55-60%. Left atrial size is normal. * Hemoglobin A1c 5.3 on 10/24/2021 * Lipid panel with cholesterol 190, LDL 109, HDL 62 and triglycerides 90. * Patient's B12 480, folate 8.3 and vitamin B6 6. * LAUREN is negative * HIV 1 and 2 is nonreactive. Treponema pallidum antibody is nonreactive - Labs CBC & Chem 7: 04/30/22 08:33 04/30/22 08:33 Labs: Abnormal Lab Results - Last 24 Hours (Table) 04/30/22 04/30/22 Range/Units 08:33 08:33 RBC 3.62 L (4.30-5.90) m/uL Hgb 12.2 L (13.0-17.5) gm/dL Hct 33.2 L (39.0-53.0) % Plt Count 125 L (150-450) k/uL Sodium 136 L (137-145) mmol/L Creatinine 0.64 L (0.66-1.25) mg/dL Calcium 8.2 L (8.4-10.2) mg/dL Total Protein 5.2 L (6.3-8.2) g/dL Albumin 3.4 L (3.5-5.0) g/dL Assessment and Plan Assessment: * New onset Multiple Sclerosis on imaging (MRI Brain and C-spine with enhancement seen on MRI Brain. * Status post fall from legs giving out, with subsequent right shoulder fracture likely due to above. * Altered mental status, with intermittent confusion, possible delirium versus metabolic encephalopathy. Possilby has underlying cognitive impairment due to [employer]IE[employer] demyelinating disease. No seizure on EEG. * Tobacco use Plan: * I started the patient on IV Solu-Medrol 500mg every 12 hours for 3-5 days because of his active lesions and new onset of Multiple Sclerosis. Started on IV protonix and will defer sugar management to primary team. Recommend outpatient neurologist for start of disease modifying therapy. * Lumbar puncture is scheduled for today for MS protocol. * Dr. Kirk has recommended to continue ASA 81mg daily and Lipitor 20mg daily for stroke prevention and was started on B12, folate and B6 replacement. * DVT prophylaxis: Continue heparin 5000 units subcu every 12 hours. * Will defer the rest of medical management to the primary team. * Upon discharge, patient needs to follow-up with Neurologist as outpatient for management of multiple sclerosis. The plan is discussed with patient and his nurse. Evaristo Ventura M.D. Neuro-Hospitalist Time with Patient: Less than 30
[2022-04-30] MEDS: CYANOCOBALAMIN 500 MCG TAB PO SCH (11:47)
[2022-04-30] MEDS: FOLIC ACID 1 MG TAB PO SCH (11:47)
[2022-04-30] MEDS: PANTOPRAZOLE 40 MG/10 ML VIAL IVP SCH (11:48)
[2022-04-30] MEDS: PYRIDOXINE 50 MG TAB PO SCH (11:48)
[2022-04-30] MEDS: methylPREDNISolone SOD SUCCIN 500 MG in SODIUM CHLORIDE 0.9% 100 ML IVPB SCH ×2 (12:43→19:57)
[2022-04-30] MEDS: SODIUM CHLORIDE 0.9% 1,000 ML IV SCH (16:36)
[2022-04-30 17:28] LABS: Appearance,CSF Clear; CSF Tube Number 4; CSF Tube Volume 1; Nucleated Cells, CSF 4 u/L (0-5); Red Blood Cell,CSF 0 u/L (0-10)
[2022-04-30 17:41] LABS: Glucose,CSF 57 mg/dL (40-70); Total Protein,CSF 67 mg/dL (12-60)
[2022-04-30] MEDS ORDERED: Potassium Replacement Protocol 1 EACH MISC MISCELLANE PRN (19:01)
[2022-04-30] MEDS: ATORVASTATIN 20 MG TAB PO SCH (19:56)
[2022-04-30] MEDS ORDERED: POTASSIUM CHLORIDE ER 20 MEQ TAB.ER PO SCH (20:00)
[2022-05-01] MEDS: CYANOCOBALAMIN 500 MCG TAB PO SCH (10:19)
[2022-05-01] MEDS: PYRIDOXINE 50 MG TAB PO SCH (10:19)
[2022-05-01] MEDS: PANTOPRAZOLE 40 MG/10 ML VIAL IVP SCH (10:19)
[2022-05-01] MEDS: FOLIC ACID 1 MG TAB PO SCH (10:19)
[2022-05-01] MEDS: methylPREDNISolone SOD SUCCIN 500 MG in SODIUM CHLORIDE 0.9% 100 ML IVPB SCH ×2 (10:20→20:56)
--- NOTE | 2022-05-01 10:58 | P.PN ---
Subjective Progress Note Date: 05/01/22 The patient is seen at beside and feel about the same. Denies any worsening of his neurological issues. Objective - Vital Signs Vital signs: Vital Signs Temp 97.8 F 05/01/22 08:00 Pulse 78 05/01/22 08:00 Resp 18 05/01/22 08:00 BP 99/63 05/01/22 08:00 Pulse Ox 99 05/01/22 08:00 FiO2 Intake & Output 04/30/22 05/01/22 05/01/22 18:59 06:59 18:59 Intake Total 50 Output Total 525 400 Balance -475 -400 Intake: IV 50 Output: Urine 525 400 Other: Voiding Method Toilet Toilet - Exam GENERAL: The patient is lying in bed and is in mild acute distress. NEUROLOGICAL: Higher mental function: The patient is awake, alert, oriented to self, place and time. He is slow responding. Patient is following simple commands. No aphasia and no neglect. Cranial nerves: The pupils are round, equal and reactive to light . Visual raya are full to confrontation throughout. Extraocular movement is intact no nystagmus is noted. Facial sensation is normal to touch throughout. The facial strength is normal throughout. HTongue is midline and moved [id number] without any difficulty. No dysarthria is noted. Shoulder shrug is normal bilaterally. Motor: Right shoulder and right upper extremity strength is deferred because of pain. Otherwsie left upper extremity is 5/5. The lowers had about 4- to 4 proximally bilaterally (appears right slighter stronger than left). Ankles are 5- Bilaterally. Cerebellum: Normal finger to nose bilaterally. Sensation: Sensation is normal to touch throughout. Reflexes (right/left): Patelllar are 3+. Otherwise 2+ throughout except right upper since deferred because of pain. SOME OF THE WORK-UP DURING THIS HOSPITAL VISIT: * MRI of the brain without contrast revealed extensive white matter signal changes, could relate to severe demyelinating disease. There is involvement of the corpus callosum. Microvascular ischemia not excluded. Increased signal in the centrum semiovale bilaterally on the diffusion images could be acute disease. I personally reviewed MRI of the brain. The abnormal signal in the diffusion weighted is possible T2 shine through. On FLAIR images, there is hyperintense signal in the left cerebellum, left posterior temporal, bilateral significant periventricular as well as subcortical white matter lesion, many of them are perpendicular to the lateral ventricle, highly suggestive of demyelinating disease like MS. * MRI of the brain with his reported as multiple foci of abnormal enhancement consistent with the patient multiple sclerosis. I personally reviewed the MRI and I agree with the report. * MRI of the cervical spine is reported as finding may represent abnormal cord signal, there is no evidence of abnormal enhancement however. Degenerative disc disease, formidable encroachment. It is reported that shows some possible increased signal on T2 weighted sequence that's ill-defined over the C3, C4, C5 and possibly C7. I personally reviewed the MRI and I agree with the report and I agree that there possibly is a cord that signal but does not enhance with contrast from the C3 to C6 region. * Carotid Doppler revealed antegrade flow in the vertebral arteries. Less than 10% stenosis of both ICA. * Routine EEG is abnormal. The background slowing suggestive of mild encephalopathy. Otherwise there is no focal slowing, epileptiform form discharges or seizure on the EEG. * 2-D echo with bubble study was technically difficult study for interpretation. Normal left-ventricular systolic function with EF 55-60%. Left atrial size is normal. * Hemoglobin A1c 5.3 on 10/24/2021 * Lipid panel with cholesterol 190, LDL 109, HDL 62 and triglycerides 90. * Patient's B12 480, folate 8.3 and vitamin B6 6. * LAUREN is negative * HIV 1 and 2 is nonreactive. Treponema pallidum antibody is nonreactive * CSF: clear, colorless, 4 nucleated cells, glucose 57 and protein is 67 (normal is 12-60). His opening pressure is 7 and closing is 9 cm H20. * - Labs CBC & Chem 7: 04/30/22 08:33 04/30/22 08:33 Labs: Abnormal Lab Results - Last 24 Hours (Table) 04/30/22 Range/Units 10:23 CSF Total Protein 67 H (12-60) mg/dL Microbiology - Last 24 Hours (Table) 04/30/22 10:23 CSF Gram Stain - Preliminary Cerebral Spinal Fluid CSF Culture - Preliminary Assessment and Plan Assessment: * New onset Multiple Sclerosis on imaging (MRI Brain and C-spine with enhancement seen on MRI Brain. * Status post fall from legs giving out, with subsequent right shoulder fracture likely due to above. * Altered mental status, with intermittent confusion, possible delirium versus metabolic encephalopathy. Possilby has underlying cognitive impairment due to [employer]ERSON demyelinating disease. No seizure on EEG. * Tobacco use Plan: * I started the patient on IV Solu-Medrol 500mg every 12 hours for total of 3-5 days (was started on 04/30) because of his active lesions and new onset of Multiple Sclerosis. Started on IV protonix and will defer sugar management to primary team. Recommend outpatient neurologist for start of disease modifying therapy. * Pending MS protocol on CSF. * Dr. Kirk has recommended to continue ASA 81mg daily and Lipitor 20mg daily for stroke prevention but in my opinion he does not have acute or subacute stroke and his lesions are due to Multiple Sclerosis, therefore no need for them. * On B12, folate and B6 replacement. * DVT prophylaxis: Continue heparin 5000 units subcu every 12 hours. * Will defer the rest of medical management to the primary team. * Upon discharge, patient needs to follow-up with Neurologist as outpatient for management of multiple sclerosis. The plan is discussed with patient and his nurse. Evaristo Ventura M.D. Neuro-Hospitalist Time with Patient: Less than 30
[2022-05-01 13:35] LABS: IgG Synthesis Rate 41.13 mg/day (0.00 - 3.00); Immunoglobulin G 559 mg/dL (700 - 1600)
--- NOTE | 2022-05-01 14:23 | P.PN ---
Subjective Progress Note Date: 04/30/22 Leo James, is a 52-year-old male who presented to the [facility] emergency room with a chief complaint of confusion and mental status changes. Patient had a fall backwards few days ago and x-ray of the right shoulder revealed impacted humeral neck fracture, family states that patient was confused. Computed tomography scan of the brain revealed evidence of hypodensity in the right occipital lobe suggestive of an infarct and subtle hypodensity in the right posterior frontal lobe white matter suggestive of lacunar infarct patient and family he denies any previous history of strokes, he was admitted to telemetry floor and neurology consultation was requested. Patient denies any significant past medical history in the past, he denies any history of hypertension hyperlipidemia, or any history of coronary artery disease strokes or seizures in the past, he is not maintained on any home medications, he states that he smokes a few cigarettes per day, he used to smoke more in the past but has been cutting down, he denies any alcohol abuse. He was evaluated in the emergency room vital examination on presentation revealed a temperature of 98.6 pulse 90 respiration 15 blood pressure 102/66 pulse ox 99% on room air Laboratory data revealed a white blood count of 10.8 hemoglobin 13.7 platelet count 163 sodium 136 potassium 4.3 chloride 101 CO2 20 BUN 16 creatinine 1.2 glucose level 119 Patient was admitted to telemetry floor for further evaluation and treatment On 04/28/2022 patient is alert and oriented 3. Patient was evaluated by orthopedic services sling in place patient will follow-up outpatient with orthopedics for further management no surgical intervention at this time. MRI was completed awaiting neurology follow-up review. Current vital signs temp 99.2, heart rate 99, respiratory rate 18, blood pressure 114/60 with a pulse ox of 99% on room air area patient reports improvement with generalized weakness. At this time patient denies chest pain or shortness breath. Patient denies nausea vomiting or diarrhea. Patient denies any urinary burning or frequency. On 04/29/2022 patient is alert, confused in no distress. Patient was evaluated by orthopedic services sling in place patient will follow-up outpatient with orthopedics for further management no surgical intervention at this time. Current vital signs temp 99.2, heart rate 99, respiratory rate 18, blood pressure 114/60 with a pulse ox of 99% on room air area patient reports improvement with generalized weakness. At this time patient denies chest pain or shortness breath. Patient denies nausea vomiting or diarrhea. Patient denies any urinary burning or frequency, MRI results and neurology input reviewed, awaiting MRI with contrast, EEG and LP. On 04/30/2022 patient is alert, confused in no distress. Patient was evaluated by orthopedic services sling in place patient will follow-up outpatient with orthopedics for further management no surgical intervention at this time. patie nt reports improvement with generalized weakness. At this time patient denies chest pain or shortness breath. Patient denies nausea vomiting or diarrhea. Patient denies any urinary burning or frequency, MRI results and neurology input reviewed, awaiting MRI with contrast, EEG and LP results Objective - Vital Signs Vital signs: Vital Signs Temp 96.8 F L 04/30/22 12:00 Pulse 64 04/30/22 12:00 Resp 17 04/30/22 12:00 BP 92/61 04/30/22 12:00 Pulse Ox 97 04/30/22 12:00 FiO2 Intake & Output 04/29/22 04/30/22 04/30/22 18:59 06:59 18:59 Intake Total 50 Output Total 1050 280 Balance -1050 -280 50 Intake: IV 50 Output: Urine 1050 280 Other: Voiding Method Toilet Toilet Toilet - Exam In general patient is alert and oriented x3 in no distress HEENT head normocephalic and atraumatic Neck is supple no JVD no goiter no lymphadenopathy no carotid bruit Chest examination is clear to auscultation no crackles no wheezing Cardiac exam reveals regular heart sounds S1 and S2 no gallops no murmurs Abdomen is soft nontender no organomegaly with normal bowel sounds Extremity exam reveals no edema no cyanosis or clubbing Neurological examination reveals no gross focal deficits - Labs CBC & Chem 7: 04/30/22 08:33 04/30/22 08:33 Labs: Abnormal Lab Results - Last 24 Hours (Table) 04/30/22 04/30/22 Range/Units 08:33 08:33 RBC 3.62 L (4.30-5.90) m/uL Hgb 12.2 L (13.0-17.5) gm/dL Hct 33.2 L (39.0-53.0) % Plt Count 125 L (150-450) k/uL Sodium 136 L (137-145) mmol/L Creatinine 0.64 L (0.66-1.25) mg/dL Calcium 8.2 L (8.4-10.2) mg/dL Total Protein 5.2 L (6.3-8.2) g/dL Albumin 3.4 L (3.5-5.0) g/dL Assessment and Plan Plan: 1. Confusion with mental status changes, cause is not entirely clear, but to be related to areas of stroke on computed tomography scan however, strokes may be old and other causes of mental status changes need to be ruled out, at this time will check urine toxicology screen, check urine analysis and chest x-ray 2. Evidence of 2 areas of stroke on computed tomography scan of the brain, exact timing of the strokes is not clear, patient denies any knowledge of any previous stroke, neurology consultation has been requested, echocardiogram and carotid Doppler were ordered, aspirin and Lipitor were added to medication regimen, will follow closely. 3. Mild leukocytosis, will check chest x-ray and urine analysis. Chest x-ray negative 4. Evidence of impacted right humeral neck fracture, orthopedic consultation requested Medication and labs were reviewed Chest x-ray negative Carotid Doppler suggests less than 10% stenosis MRI completed For DVT prophylaxis SCD stockings Will follow in a.m.
--- NOTE | 2022-05-01 15:04 | P.PN ---
Subjective Progress Note Date: 05/01/22 Leo James, is a 52-year-old male who presented to the [facility] emergency room with a chief complaint of confusion and mental status changes. Patient had a fall backwards few days ago and x-ray of the right shoulder revealed impacted humeral neck fracture, family states that patient was confused. Computed tomography scan of the brain revealed evidence of hypodensity in the right occipital lobe suggestive of an infarct and subtle hypodensity in the right posterior frontal lobe white matter suggestive of lacunar infarct patient and family he denies any previous history of strokes, he was admitted to telemetry floor and neurology consultation was requested. Patient denies any significant past medical history in the past, he denies any history of hypertension hyperlipidemia, or any history of coronary artery disease strokes or seizures in the past, he is not maintained on any home medications, he states that he smokes a few cigarettes per day, he used to smoke more in the past but has been cutting down, he denies any alcohol abuse. He was evaluated in the emergency room vital examination on presentation revealed a temperature of 98.6 pulse 90 respiration 15 blood pressure 102/66 pulse ox 99% on room air Laboratory data revealed a white blood count of 10.8 hemoglobin 13.7 platelet count 163 sodium 136 potassium 4.3 chloride 101 CO2 20 BUN 16 creatinine 1.2 glucose level 119 Patient was admitted to telemetry floor for further evaluation and treatment On 04/28/2022 patient is alert and oriented 3. Patient was evaluated by orthopedic services sling in place patient will follow-up outpatient with orthopedics for further management no surgical intervention at this time. MRI was completed awaiting neurology follow-up review. Current vital signs temp 99.2, heart rate 99, respiratory rate 18, blood pressure 114/60 with a pulse ox of 99% on room air area patient reports improvement with generalized weakness. At this time patient denies chest pain or shortness breath. Patient denies nausea vomiting or diarrhea. Patient denies any urinary burning or frequency. On 04/29/2022 patient is alert, confused in no distress. Patient was evaluated by orthopedic services sling in place patient will follow-up outpatient with orthopedics for further management no surgical intervention at this time. Current vital signs temp 99.2, heart rate 99, respiratory rate 18, blood pressure 114/60 with a pulse ox of 99% on room air area patient reports improvement with generalized weakness. At this time patient denies chest pain or shortness breath. Patient denies nausea vomiting or diarrhea. Patient denies any urinary burning or frequency, MRI results and neurology input reviewed, awaiting MRI with contrast, EEG and LP. On 04/30/2022 patient is alert, confused in no distress. Patient was evaluated by orthopedic services sling in place patient will follow-up outpatient with orthopedics for further management no surgical intervention at this time. patie nt reports improvement with generalized weakness. At this time patient denies chest pain or shortness breath. Patient denies nausea vomiting or diarrhea. Patient denies any urinary burning or frequency, MRI results and neurology input reviewed, awaiting MRI with contrast, EEG and LP results On 05/01/2022 patient was seen and examined on the medical floor he is alert and oriented 3 in no apparent distress he is still complaining of right shoulder pain and complaining of generalized weakness otherwise he denies any complaints there is no fever or chills no headache or dizziness no chest pain no shortness of breath no cough no nausea or vomiting no abdominal pain no diarrhea and no urinary symptoms. At this point neurology established a new diagnosis of multiple sclerosis, patient was started on IV Solu-Medrol 500 mg, will add insulin to sliding scale [facility] occupational therapy and consultation for Dr. Mosqueda for possible rehab admission Objective - Vital Signs Vital signs: Vital Signs Temp 97.9 F 05/01/22 12:00 Pulse 75 05/01/22 14:00 Resp 17 05/01/22 14:00 BP 97/62 05/01/22 12:00 Pulse Ox 99 05/01/22 12:00 FiO2 Intake & Output 04/30/22 05/01/22 05/01/22 18:59 06:59 18:59 Intake Total 50 Output Total 525 400 Balance -475 -400 Intake: IV 50 Output: Urine 525 400 Other: Voiding Method Toilet Toilet Toilet - Exam In general patient is alert and oriented x3 in no distress HEENT head normocephalic and atraumatic Neck is supple no JVD no goiter no lymphadenopathy no carotid bruit Chest examination is clear to auscultation no crackles no wheezing Cardiac exam reveals regular heart sounds S1 and S2 no gallops no murmurs Abdomen is soft nontender no organomegaly with normal bowel sounds Extremity exam reveals no edema no cyanosis or clubbing Neurological examination reveals no gross focal deficits - Labs CBC & Chem 7: 04/30/22 08:33 04/30/22 08:33 Labs: Abnormal Lab Results - Last 24 Hours (Table) 04/28/22 04/30/22 Range/Units 12:42 10:23 CSF Total Protein 67 H (12-60) mg/dL CSF IgG (MS) 10.0 H (0.0 - 3.4) mg/dL Serum Albumin 3,390 L (3500 - 5200) mg/dL CSF IgG/Alb Ratio MS 3.30 H (0.00 - 0.77) CSF IgG Synth Rate MS 41.13 H (0.00 - 3.00) mg/day IgG 559 L (700 - 1600) mg/dL Microbiology - Last 24 Hours (Table) 04/30/22 10:23 CSF Gram Stain - Preliminary Cerebral Spinal Fluid CSF Culture - Preliminary Assessment and Plan Plan: 1. Confusion with mental status changes, cause is not entirely clear, but to be related to areas of stroke on computed tomography scan however, strokes may be old and other causes of mental status changes need to be ruled out, at this time will check urine toxicology screen, check urine analysis and chest x-ray 2. Evidence of 2 areas of stroke on computed tomography scan of the brain, exact timing of the strokes is not clear, patient denies any knowledge of any previous stroke, neurology consultation has been requested, echocardiogram and carotid Doppler were ordered, aspirin and Lipitor were added to medication regimen, will follow closely. 3. Mild leukocytosis, will check chest x-ray and urine analysis. Chest x-ray negative 4. Evidence of impacted right humeral neck fracture, orthopedic consultation requested Medication and labs were reviewed Chest x-ray negative Carotid Doppler suggests less than 10% stenosis MRI completed For DVT prophylaxis SCD stockings Will follow in a.m.
[2022-05-01] MEDS: SODIUM CHLORIDE 0.9% 1,000 ML IV SCH (15:18)
[2022-05-01] MEDS ORDERED: Potassium Replacement Protocol 1 EACH MISC MISCELLANE PRN (16:35)
[2022-05-01] MEDS ORDERED: DEXTROSE 50% SYRINGE 50 ML IVP PRN ×2 (16:37)
[2022-05-01] MEDS ORDERED: POTASSIUM CHLORIDE ER 20 MEQ TAB.ER PO SCH (17:00)
[2022-05-01 17:14] LABS: Glucose,Whole Blood 195 mg/dL (70-110)
[2022-05-01] MEDS: ENOXAPARIN 40 MG/0.4 ML SYRINGE SQ SCH (17:28)
[2022-05-01] MEDS: INSULIN ASPART (NovoLOG) 100 UNIT/ML VIAL SQ SCH ×2 (17:29→20:56)
[2022-05-01 20:06] LABS: Glucose,Whole Blood 295 mg/dL (70-110)
--- NOTE | 2022-05-02 05:01 | P.CONS ---
History of Present Illness - Chief Complaint Date disturbance, MS - History of Present Illness I had the opportunity to see patient for inpatient rehab consultation with regard to gait disturbance. Patient admitted to Dr. ceci dale April 27 history of fall and right shoulder pain. X-ray revealed impacted humeral neck fracture. Seen by Dr. Gonzalez's and who is placed arm in sling in's prescribed nonweig htbearing right arm. Seen by Dr. Calixto for the syncope. LP done for diagnosis stroke. Patient reports that in fact the workup may have been going on for the last year with regard to possible MS. Head CT demonstrates atrophy and C-spine CT demonstrates mild DDD. Carotid Doppler done. Brain MRI with extensive demyelination. Chest x-ray negative. C-spine MRI with C4 disc complex with minimal thecal effacement. Brain MRI multiple lesions consistent with MS. His started therapies. PT reports minimal moderate assistance for transfer and minimal assistance for gait 2 feet, hand-held. Balance fair to poor. OT reports supervision for feeding, moderate assistance for grooming and upper dr essing, maximal assistance lower dressing, bathing, toileting. Moderate assistance functional debility and transfers. Previous functional history as elicited from patient: 52-year-old right-handed w edyta male who is single lives in one floor home with sister. Sr. generally does the cooking and laundry most of the driving. Patient independent does some driving, standing shower. Apparently has recently received POV for mobility with sisters of help. PCP Dr. Owens. Review of Systems Review of systems: ENT: Denies sneezes or discharge. Eyes: Denies discharge or photophobia. Cardiac: Denies chest pain or palpitation. Pulmonary: Denies cough or shortness of breath. Gastrointestinal: Denies nausea, emesis, constipation, diarrhea. Genitourinary: Denies discharge or frequency. Musculoskeletal: Right arm/humeral discomfort. Neurologic: Numbness hands and feet, perhaps generalized weakness. Endocrine: Denies shakes or sweats. Oncology: Denies cancers. Dermatologic: Denies rash, itching, pruritus. ALLERGY/immunology: Denies sneezes, rashes. Past Medical History Past Medical History: No Reported History History of Any Multi-Drug Resistant Organisms: None Reported Past Surgical History: No Surgical Hx Reported Past Anesthesia/Blood Transfusion Reactions: No Reported Reaction Past Psychological History: Anxiety Past Alcohol Use History: Occasional Past Drug Use History: Marijuana Medications and Allergies Home Medications Medication Instructions Recorded Confirmed Type No Known Home Medications 04/27/22 04/27/22 History Allergies Allergy/AdvReac Type Severity Reaction Status Date / Time No Known Allergies Allergy Verified 04/27/22 12:08 Physical Exam Vitals: Vital Signs Temp Pulse Resp BP Pulse Ox 05/02/22 03:52 98 F 65 18 124/73 99 05/02/22 00:00 97.8 F 71 16 102/66 100 05/01/22 20:00 98.1 F 84 16 92/61 99 05/01/22 16:00 97.9 F 67 17 102/65 99 05/01/22 14:00 75 17 05/01/22 12:00 97.9 F 75 17 97/62 99 05/01/22 08:00 97.8 F 78 18 99/63 99 Intake and Output 05/01/22 05/01/22 05/02/22 14:59 22:59 06:59 Intake Total 240 Output Total 400 200 500 Balance -400 40 -500 Intake: Oral 240 Output: Urine 400 200 500 Other: Voiding Method Toilet Toilet Toilet Urinal Urinal # Voids 1 1 2 # Bowel Movements 1 Skin: Good color, texture, turgor. General: Thin build and comfortable appearance. Head: Normocephalic, atraumatic. Eyes: Symmetric. Pupils equal round. Ears: Symmetric. Hearing within normal limits. Mouth: Clear. Neck: Supple. Carotid without bruit. Cardiac: Regular rate and rhythm. Lungs: Clear anteriorly and posteriorly. Abdomen: Soft active nontender. Extremities: Normal tone. Thin. Right arm in sling. Neurological: Mental status: Alert, cooperative, pleasant. Cranial nerves: Symmetric facial tone and trapezius. Motor: Active movement left arm and both legs and right hand. Sensation: Intact throughout. DTRs: Symmetric and equal throughout. Mobility: Did not attempt to sit or stand this early a.m. Results CBC & Chem 7: 04/30/22 08:33 04/30/22 08:33 Labs: Abnormal Lab Results - Last 24 Hours (Table) 04/28/22 05/01/22 05/01/22 Range/Units 12:42 16:56 20:05 POC Glucose (mg/dL) 195 H 295 H (70-110) mg/dL CSF IgG (MS) 10.0 H (0.0 - 3.4) mg/dL Serum Albumin 3,390 L (3500 - 5200) mg/dL CSF IgG/Alb Ratio MS 3.30 H (0.00 - 0.77) CSF IgG Synth Rate MS 41.13 H (0.00 - 3.00) mg/day IgG 559 L (700 - 1600) mg/dL Microbiology - Last 24 Hours (Table) 04/30/22 10:23 CSF Gram Stain - Preliminary Cerebral Spinal Fluid CSF Culture - Preliminary Assessment and Plan (1) Humerus fracture Current Visit: Yes Status: Acute Code(s): S42.309A - UNSP FRACTURE OF SHAFT OF HUMERUS, UNSP ARM, INIT SNOMED Code(s): 35184987 Plan: Comments and plan: Diagnoses should also include MS, note demyelinating disease brain MRI. Patient does have some cervical disc disease with C4 disc complex. And of course the right humeral neck fracture. At this time safety concerns are noted. Demonstrate ability tolerate and benefit from therapies. Discussed inpatient rehab. At this time patient would prefer to defer that admission to next week. I discussed with him that would be up to admitting physician and insurance rules.
[2022-05-02] MEDS: SODIUM CHLORIDE 0.9% 1,000 ML IV SCH (05:50)
[2022-05-02 06:09] LABS: Glucose,Whole Blood 167 mg/dL (70-110)
[2022-05-02] MEDS: INSULIN ASPART (NovoLOG) 100 UNIT/ML VIAL SQ SCH ×4 (06:23→21:13)
[2022-05-02] MEDS: PANTOPRAZOLE 40 MG/10 ML VIAL IVP SCH (08:48)
[2022-05-02] MEDS: CYANOCOBALAMIN 500 MCG TAB PO SCH (08:48)
[2022-05-02] MEDS: ENOXAPARIN 40 MG/0.4 ML SYRINGE SQ SCH (08:48)
[2022-05-02] MEDS: PYRIDOXINE 50 MG TAB PO SCH (08:48)
[2022-05-02] MEDS: FOLIC ACID 1 MG TAB PO SCH (08:48)
[2022-05-02] MEDS: methylPREDNISolone SOD SUCCIN 500 MG in SODIUM CHLORIDE 0.9% 100 ML IVPB SCH (08:48)
[2022-05-02 08:59] LABS: Basophils % (A) 0 %; Eosinophils % (A) 0 %; HGB 11.6 gm/dL (13.0-17.5); Lymphocytes % (A) 10 %; MCH 32.9 pg (25.0-35.0); MCHC 36.2 g/dL (31.0-37.0); MCV 90.9 fL (80.0-100.0); Mean Platelet Volume 8.5; Monocytes # (A) 0.4 k/uL (0-1.0); Monocytes % (A) 4 %; Neutrophils # (A) 8.7 k/uL (1.3-7.7); Neutrophils % (A) 86 %; Platelet Count 155 k/uL (150-450); RBC 3.52 m/uL (4.30-5.90); RDW 13.5 % (11.5-15.5); WBC 10.1 k/uL (3.8-10.6)
[2022-05-02 09:15] LABS: ALT 17 U/L (4-49); AST 19 U/L (17-59); African American GFR (CKD) >90 (>60 ml/min/1.73 sqM); Albumin 3.5 g/dL (3.5-5.0); Alkaline Phosphatase 43 U/L (38-126); Anion Gap 9 mmol/L; Blood Urea Nitrogen 15 mg/dL (9-20); Calcium 8.7 mg/dL (8.4-10.2); Carbon Dioxide 22 mmol/L (22-30); Chloride 107 mmol/L (98-107); Glucose 138 mg/dL (74-99); Non-African American GFR(CKD) >90 (>60 ml/min/1.73 sqM); Sodium 138 mmol/L (137-145); Total Bilirubin 1.3 mg/dL (0.2-1.3); Total Protein 5.4 g/dL (6.3-8.2)
--- NOTE | 2022-05-02 11:22 | P.PN ---
Subjective Progress Note Date: 05/02/22 Patient is seen at bedside and he feels is about the same. Then later to me leaving the room he stated that his IV line machine as calling him and he needs to call the IV line machine back. Per the nurse staff he did not seem off yesterday and overheard a coversation yesterday and apologized it was not him that did it (even though no one was referring to him). Objective - Vital Signs Vital signs: Vital Signs Temp 98 F 05/02/22 03:52 Pulse 65 05/02/22 03:52 Resp 18 05/02/22 03:52 BP 124/73 05/02/22 03:52 Pulse Ox 99 05/02/22 03:52 FiO2 Intake & Output 05/01/22 05/02/22 05/02/22 18:59 06:59 18:59 Intake Total 240 0 Output Total 400 700 Balance -400 -460 0 Intake: Oral 240 0 Output: Urine 400 700 Other: Voiding Method Toilet Toilet Urinal # Voids 1 2 # Bowel Movements 1 - Exam GENERAL: The patient is lying in bed and is in mild acute distress. NEUROLOGICAL: Higher mental function: The patient is awake, alert, oriented to self, place and time. He is slow responding. Patient is following simple commands. No aphasia and no neglect. Cranial nerves: The pupils are round, equal and reactive to light . Visual raya are full to confrontation throughout. Extraocular movement is intact no nystagmus is noted. Facial sensation is normal to touch throughout. The facial strength is normal throughout. HTongue is midline and moved [id number] without any difficulty. No dysarthria is noted. Shoulder shrug is normal bilaterally. Motor: Right shoulder and right upper extremity strength is deferred because of pain. Otherwsie left upper extremity is 5/5. The lowers had about 4- to 4 proximally bilaterally (appears right slighter stronger than left). Ankles are 5- Bilaterally. Cerebellum: Normal finger to nose bilaterally. Sensation: Sensation is normal to touch throughout. Reflexes (right/left): Patelllar are 3+. Otherwise 2+ throughout except right upper since deferred because of pain. SOME OF THE WORK-UP DURING THIS HOSPITAL VISIT: * MRI of the brain without contrast revealed extensive white matter signal changes, could relate to severe demyelinating disease. There is involvement of the corpus callosum. Microvascular ischemia not excluded. Increased signal in the centrum semiovale bilaterally on the diffusion images could be acute disease. I personally reviewed MRI of the brain. The abnormal signal in the diffusion weighted is possible T2 shine through. On FLAIR images, there is hyperintense signal in the left cerebellum, left posterior temporal, bilateral significant periventricular as well as subcortical white matter lesion, many of them are perpendicular to the lateral ventricle, highly suggestive of demyelinating disease like MS. * MRI of the brain with his reported as multiple foci of abnormal enhancement consistent with the patient multiple sclerosis. I personally reviewed the MRI and I agree with the report. * MRI of the cervical spine is reported as finding may represent abnormal cord signal, there is no evidence of abnormal enhancement however. Degenerative disc disease, formidable encroachment. It is reported that shows some possible increased signal on T2 weighted sequence that's ill-defined over the C3, C4, C5 and possibly C7. I personally reviewed the MRI and I agree with the report and I agree that there possibly is a cord that signal but does not enhance with contrast from the C3 to C6 region. * Carotid Doppler revealed antegrade flow in the vertebral arteries. Less than 10% stenosis of both ICA. * Routine EEG is abnormal. The background slowing suggestive of mild encephalopathy. Otherwise there is no focal slowing, epileptiform form discharges or seizure on the EEG. * 2-D echo with bubble study was technically difficult study for interpretation. Normal left-ventricular systolic function with EF 55-60%. Left atrial size is normal. * Hemoglobin A1c 5.3 on 10/24/2021 * Lipid panel with cholesterol 190, LDL 109, HDL 62 and triglycerides 90. * Patient's B12 480, folate 8.3 and vitamin B6 6. * LAUREN is negative * HIV 1 and 2 is nonreactive. Treponema pallidum antibody is nonreactive * CSF: clear, colorless, 4 nucleated cells, glucose 57 and protein is 67 (normal is 12-60). His opening pressure is 7 and closing is 9 cm H20. * - Labs CBC & Chem 7: 05/02/22 08:37 05/02/22 08:37 Labs: Abnormal Lab Results - Last 24 Hours (Table) 04/28/22 05/01/22 05/01/22 Range/Units 12:42 16:56 20:05 RBC (4.30-5.90) m/uL Hgb (13.0-17.5) gm/dL Hct (39.0-53.0) % Neutrophils # (1.3-7.7) k/uL Glucose (74-99) mg/dL POC Glucose (mg/dL) 195 H 295 H (70-110) mg/dL Total Protein (6.3-8.2) g/dL CSF IgG (MS) 10.0 H (0.0 - 3.4) mg/dL Serum Albumin 3,390 L (3500 - 5200) mg/dL CSF IgG/Alb Ratio MS 3.30 H (0.00 - 0.77) CSF IgG Synth Rate MS 41.13 H (0.00 - 3.00) mg/day IgG 559 L (700 - 1600) mg/dL 05/02/22 05/02/22 05/02/22 Range/Units 06:08 08:37 08:37 RBC 3.52 L (4.30-5.90) m/uL Hgb 11.6 L (13.0-17.5) gm/dL Hct 32.0 L (39.0-53.0) % Neutrophils # 8.7 H (1.3-7.7) k/uL Glucose 138 H (74-99) mg/dL POC Glucose (mg/dL) 167 H (70-110) mg/dL Total Protein 5.4 L (6.3-8.2) g/dL CSF IgG (MS) (0.0 - 3.4) mg/dL Serum Albumin (3500 - 5200) mg/dL CSF IgG/Alb Ratio MS (0.00 - 0.77) CSF IgG Synth Rate MS (0.00 - 3.00) mg/day IgG (700 - 1600) mg/dL Microbiology - Last 24 Hours (Table) 04/30/22 10:23 CSF Gram Stain - Preliminary Cerebral Spinal Fluid CSF Culture - Preliminary Assessment and Plan Assessment: * New onset Multiple Sclerosis on imaging (MRI Brain and C-spine with en hancement seen on MRI Brain. * Mild to moderate encephalopathy with some Psychosis likely due to IV steroid. * Status post fall from legs giving out, with subsequent right shoulder fracture likely due to above. * Altered mental status, with intermittent confusion, possible delirium versus metabolic encephalopathy. 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 No seizure on EEG. * Tobacco use Plan: * I started the patient on IV Solu-Medrol 500mg every 12 hours for total of 3-5 days (was started on 04/30) because of his active lesions and new onset of Multiple Sclerosis but will stop today because of his confusion/some psychotic behavior. Recommend outpatient neurologist for start of disease modifying therapy. * MS protocol on CSF: +ve for oligoclonal bands, positive for CSF IgG * Dr. Kirk has recommended to continue ASA 81mg daily and Lipitor 20mg daily for stroke prevention but in my opinion he does not have acute or subacute stroke and his lesions are due to Multiple Sclerosis, therefore no need for them. * On B12, folate and B6 replacement. * DVT prophylaxis: Continue heparin 5000 units subcu every 12 hours. * Will defer the rest of medical management to the primary team. * Upon discharge, patient needs to follow-up with Neurologist as outpatient for management of multiple sclerosis. Will continue to observe the patient for another to see if any improvement in his confusion/psychotic and it improved he can be discharged and hopefully to rehab. The plan is discussed with patient and his nurse. Evaristo Ventura M.D. Neuro-Hospitalist Time with Patient: Less than 30
[2022-05-02 11:43] LABS: Glucose,Whole Blood 213 mg/dL (70-110)
--- NOTE | 2022-05-02 13:53 | CDI ---
Documentation Clarification Form Date: 05/02/2022 01:12:13 PM From: Gina Cerrato RN CCDS Admit Date: 04/27/2022 06:58:00 AM Patient Name: Leo James Visit Number: [id number] Discharge Date: ATTENTION: The Clinical Documentation Specialists (CDI) and [facility] Coding Staff appreciate your assistance in clarifying documentation. Please respond to the clarification below the line at the bottom and electronically sign. The CDI & [facility] Coding staff will review the response and follow-up if needed. Please note: Queries are made part of the Legal Health Record. If you have any questions, please contact the author of this message via ITS. Dr. Kathleen Almaguer The patients principal diagnosis the diagnosis that was chiefly responsible for the admission - has not been clearly identified and clarification is requested. The patient presented with the following confusion, falls, altered mental status History/Risk factors: 52-year-old male presents to the ED with confusion and altered mental status with fall. Medical history: Anxiety. H&P, 04/27. Clinical Indicators: Lab findings: 04/27 Wbc 10.8; neutrophils 9.5; NA 136; Toxicology opiates positive; IgG 559; 04/30 Cerebral spinal fluid no growth after 24 hours Radiology findings: CT Brain, 04/27: There is some cerebral atrophy. There is hypodensity in the right occipital lobe suggestive of a 2 cm infarct. There is also some subtle hypodensity right posterior frontal lobe white matter suggestive of lacunar infarct. There is likely some microvascular ischemia. MRI Brain without contrast 04/27: Extensive white matter signal changes could relate to severe demyelinating disease. There is involvement of the corpus callosum. Microvascular ischemia not excluded. Increased signal in the centrum semiovale bilaterally on the diffusion images could BE acute disease. MRI Brain with contrast 04/29: Multiple foci of abnormal enhancement consistent with patient's multiple sclerosis Should xray, 04/27: Impacted humeral neck fracture Vital Signs: Neurology progress note, 05/02: * New onset Multiple Sclerosis on imaging (MRI Brain and C-spine with enhancement seen on MRI Brain. * Mild to moderate encephalopathy with some Psychosis likely due to IV steroid. * Status post fall from legs giving out, with subsequent right shoulder fracture likely due to above. * Altered mental status, with intermittent confusion, possible delirium versus metabolic encephalopathy. 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 No seizure on EEG. Treatment: 04/30 Methylprednsiolone IVPB Q12HR, Consults: Neurology see above In your professional opinion, can you please clarify which diagnosis, after study, was the reason chiefly responsible for the admission? [x ] New onset Multiple Sclerosis [ ] Other, please specify [ ] Unable to determine (Template Last Revised: September 2020) MTDD
--- NOTE | 2022-05-02 13:53 | CDI ---
Documentation Clarification Form Date: 05/02/2022 01:12:13 PM From: Gina Cerrato RN CCDS Admit Date: 04/27/2022 06:58:00 AM Patient Name: Leo James Visit Number: [id number] Discharge Date: ATTENTION: The Clinical Documentation Specialists (CDI) and [facility] Coding Staff appreciate your assistance in clarifying documentation. Please respond to the clarification below the line at the bottom and electronically sign. The CDI & [facility] Coding staff will review the response and follow-up if needed. Please note: Queries are made part of the Legal Health Record. If you have any questions, please contact the author of this message via ITS. Dr. Kathleen Almaguer The patients principal diagnosis the diagnosis that was chiefly responsible for the admission - has not been clearly identified and clarification is requested. The patient presented with the following confusion, falls, altered mental status History/Risk factors: 52-year-old male presents to the ED with confusion and altered mental status with fall. Medical history: Anxiety. H&P, 04/27. Clinical Indicators: Lab findings: 04/27 Wbc 10.8; neutrophils 9.5; NA 136; Toxicology opiates positive; IgG 559; 04/30 Cerebral spinal fluid no growth after 24 hours Radiology findings: CT Brain, 04/27: There is some cerebral atrophy. There is hypodensity in the right occipital lobe suggestive of a 2 cm infarct. There is also some subtle hypodensity right posterior frontal lobe white matter suggestive of lacunar infarct. There is likely some microvascular ischemia. MRI Brain without contrast 04/27: Extensive white matter signal changes could relate to severe demyelinating disease. There is involvement of the corpus callosum. Microvascular ischemia not excluded. Increased signal in the centrum semiovale bilaterally on the diffusion images could BE acute disease. MRI Brain with contrast 04/29: Multiple foci of abnormal enhancement consistent with patient's multiple sclerosis Should xray, 04/27: Impacted humeral neck fracture Vital Signs: Neurology progress note, 05/02: * New onset Multiple Sclerosis on imaging (MRI Brain and C-spine with enhancement seen on MRI Brain. * Mild to moderate encephalopathy with some Psychosis likely due to IV steroid. * Status post fall from legs giving out, with subsequent right shoulder fracture likely due to above. * Altered mental status, with intermittent confusion, possible delirium versus metabolic encephalopathy. 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 No seizure on EEG. Treatment: 04/30 Methylprednsiolone IVPB Q12HR, Consults: Neurology see above In your professional opinion, can you please clarify which diagnosis, after study, was the reason chiefly responsible for the admission? [x ] New onset Multiple Sclerosis [ ] Other, please specify [ ] Unable to determine (Template Last Revised: September 2020) MTDD
[2022-05-02 16:44] LABS: Glucose,Whole Blood 171 mg/dL (70-110)
--- NOTE | 2022-05-02 17:21 | P.PN ---
Subjective Progress Note Date: 05/02/22 Leo James, is a 52-year-old male who presented to the [facility] emergency room with a chief complaint of confusion and mental status changes. Patient had a fall backwards few days ago and x-ray of the right shoulder revealed impacted humeral neck fracture, family states that patient was confused. Computed tomography scan of the brain revealed evidence of hypodensity in the right occipital lobe suggestive of an infarct and subtle hypodensity in the right posterior frontal lobe white matter suggestive of lacunar infarct patient and family he denies any previous history of strokes, he was admitted to telemetry floor and neurology consultation was requested. Patient denies any significant past medical history in the past, he denies any history of hypertension hyperlipidemia, or any history of coronary artery disease strokes or seizures in the past, he is not maintained on any home medications, he states that he smokes a few cigarettes per day, he used to smoke more in the past but has been cutting down, he denies any alcohol abuse. He was evaluated in the emergency room vital examination on presentation revealed a temperature of 98.6 pulse 90 respiration 15 blood pressure 102/66 pulse ox 99% on room air Laboratory data revealed a white blood count of 10.8 hemoglobin 13.7 platelet count 163 sodium 136 potassium 4.3 chloride 101 CO2 20 BUN 16 creatinine 1.2 glucose level 119 Patient was admitted to telemetry floor for further evaluation and treatment On 04/28/2022 patient is alert and oriented 3. Patient was evaluated by orthopedic services sling in place patient will follow-up outpatient with orthopedics for further management no surgical intervention at this time. MRI was completed awaiting neurology follow-up review. Current vital signs temp 99.2, heart rate 99, respiratory rate 18, blood pressure 114/60 with a pulse ox of 99% on room air area patient reports improvement with generalized weakness. At this time patient denies chest pain or shortness breath. Patient denies nausea vomiting or diarrhea. Patient denies any urinary burning or frequency. On 04/29/2022 patient is alert, confused in no distress. Patient was evaluated by orthopedic services sling in place patient will follow-up outpatient with orthopedics for further management no surgical intervention at this time. Current vital signs temp 99.2, heart rate 99, respiratory rate 18, blood pressure 114/60 with a pulse ox of 99% on room air area patient reports improvement with generalized weakness. At this time patient denies chest pain or shortness breath. Patient denies nausea vomiting or diarrhea. Patient denies any urinary burning or frequency, MRI results and neurology input reviewed, awaiting MRI with contrast, EEG and LP. On 04/30/2022 patient is alert, confused in no distress. Patient was evaluated by orthopedic services sling in place patient will follow-up outpatient with orthopedics for further management no surgical intervention at this time. patie nt reports improvement with generalized weakness. At this time patient denies chest pain or shortness breath. Patient denies nausea vomiting or diarrhea. Patient denies any urinary burning or frequency, MRI results and neurology input reviewed, awaiting MRI with contrast, EEG and LP results On 05/01/2022 patient was seen and examined on the medical floor he is alert and oriented 3 in no apparent distress he is still complaining of right shoulder pain and complaining of generalized weakness otherwise he denies any complaints there is no fever or chills no headache or dizziness no chest pain no shortness of breath no cough no nausea or vomiting no abdominal pain no diarrhea and no urinary symptoms. At this point neurology established a new diagnosis of multiple sclerosis, patient was started on IV Solu-Medrol 500 mg, will add insulin to sliding scale and Accu-Cheks Physical therapy occupational therapy and consultation for Dr. Mosqueda for possible rehab admission On 05/02/2022 patient was seen and examined on the medical floor he is alert and oriented 3 in no apparent distress he is still complaining of right shoulder pain and complaining of generalized weakness otherwise he denies any complaints there is no fever or chills no headache or dizziness no chest pain no shortness of breath no cough no nausea or vomiting no abdominal pain no diarrhea and no urinary symptoms. At this point neurology established a new diagnosis of multiple sclerosis, patient was started on IV Solu-Medrol 500 mg, will add insulin to sliding scale and Accu-Cheks. Physical therapy occupational therapy and consultation for Dr. Mosqueda for possible rehab admission, awaiting further recommendation continue with PT , OT Objective - Vital Signs Vital signs: Vital Signs Temp 98 F 05/02/22 03:52 Pulse 65 05/02/22 03:52 Resp 18 05/02/22 03:52 BP 124/73 05/02/22 03:52 Pulse Ox 99 05/02/22 03:52 FiO2 Intake & Output 05/01/22 05/02/22 05/02/22 18:59 06:59 18:59 Intake Total 240 0 Output Total 400 700 200 Balance -400 -460 -200 Intake: Oral 240 0 Output: Urine 400 700 200 Other: Voiding Method Toilet Toilet Urinal # Voids 1 2 # Bowel Movements 1 - Exam In general patient is alert and oriented x3 in no distress HEENT head normocephalic and atraumatic Neck is supple no JVD no goiter no lymphadenopathy no carotid bruit Chest examination is clear to auscultation no crackles no wheezing Cardiac exam reveals regular heart sounds S1 and S2 no gallops no murmurs Abdomen is soft nontender no organomegaly with normal bowel sounds Extremity exam reveals no edema no cyanosis or clubbing Neurological examination reveals no gross focal deficits - Labs CBC & Chem 7: 05/02/22 08:37 05/02/22 08:37 Labs: Abnormal Lab Results - Last 24 Hours (Table) 04/28/22 05/01/22 05/01/22 Range/Units 12:42 16:56 20:05 RBC (4.30-5.90) m/uL Hgb (13.0-17.5) gm/dL Hct (39.0-53.0) % Neutrophils # (1.3-7.7) k/uL Glucose (74-99) mg/dL POC Glucose (mg/dL) 195 H 295 H (70-110) mg/dL Total Protein (6.3-8.2) g/dL CSF IgG (MS) 10.0 H (0.0 - 3.4) mg/dL Serum Albumin 3,390 L (3500 - 5200) mg/dL CSF IgG/Alb Ratio MS 3.30 H (0.00 - 0.77) CSF IgG Synth Rate MS 41.13 H (0.00 - 3.00) mg/day IgG 559 L (700 - 1600) mg/dL 05/02/22 05/02/22 05/02/22 Range/Units 06:08 08:37 08:37 RBC 3.52 L (4.30-5.90) m/uL Hgb 11.6 L (13.0-17.5) gm/dL Hct 32.0 L (39.0-53.0) % Neutrophils # 8.7 H (1.3-7.7) k/uL Glucose 138 H (74-99) mg/dL POC Glucose (mg/dL) 167 H (70-110) mg/dL Total Protein 5.4 L (6.3-8.2) g/dL CSF IgG (MS) (0.0 - 3.4) mg/dL Serum Albumin (3500 - 5200) mg/dL CSF IgG/Alb Ratio MS (0.00 - 0.77) CSF IgG Synth Rate MS (0.00 - 3.00) mg/day IgG (700 - 1600) mg/dL 05/02/22 Range/Units 11:39 RBC (4.30-5.90) m/uL Hgb (13.0-17.5) gm/dL Hct (39.0-53.0) % Neutrophils # (1.3-7.7) k/uL Glucose (74-99) mg/dL POC Glucose (mg/dL) 213 H (70-110) mg/dL Total Protein (6.3-8.2) g/dL CSF IgG (MS) (0.0 - 3.4) mg/dL Serum Albumin (3500 - 5200) mg/dL CSF IgG/Alb Ratio MS (0.00 - 0.77) CSF IgG Synth Rate MS (0.00 - 3.00) mg/day IgG (700 - 1600) mg/dL Microbiology - Last 24 Hours (Table) 04/30/22 10:23 CSF Gram Stain - Preliminary Cerebral Spinal Fluid CSF Culture - Preliminary Assessment and Plan Plan: 1. Confusion with mental status changes, cause is not entirely clear, but to be related to areas of stroke on computed tomography scan however, strokes may be old and other causes of mental status changes need to be ruled out, at this time will check urine toxicology screen, check urine analysis and chest x-ray 2. Evidence of 2 areas of stroke on computed tomography scan of the brain, exact timing of the strokes is not clear, patient denies any knowledge of any previous stroke, neurology consultation has been requested, echocardiogram and carotid Doppler were ordered, aspirin and Lipitor were added to medication regimen, will follow closely. 3. Mild leukocytosis, will check chest x-ray and urine analysis. Chest x-ray negative 4. Evidence of impacted right humeral neck fracture, orthopedic consultation requested Medication and labs were reviewed Chest x-ray negative Carotid Doppler suggests less than 10% stenosis MRI completed For DVT prophylaxis SCD stockings Will follow in a.m.
[2022-05-02 20:05] LABS: Glucose,Whole Blood 152 mg/dL (70-110)
[2022-05-03 06:17] LABS: Glucose,Whole Blood 156 mg/dL (70-110)
[2022-05-03] MEDS: SODIUM CHLORIDE 0.9% 1,000 ML IV SCH (06:35)
[2022-05-03] MEDS: INSULIN ASPART (NovoLOG) 100 UNIT/ML VIAL SQ SCH ×4 (06:46→20:40)
--- NOTE | 2022-05-03 10:38 | P.PN ---
Subjective Progress Note Date: 05/03/22 The patient is seen at bedside and he feels he is doing better. Denies having any psychiatric issues. Per nurse she denies being notified of any further confusion episode or any psychiatric more than his baseline. Per case liner, it seems that his sister stated he is cognitively delayed at baseline. Objective - Vital Signs Vital signs: Vital Signs Temp 98.8 F 05/03/22 04:35 Pulse 73 05/03/22 04:35 Resp 18 05/03/22 04:35 BP 103/55 05/03/22 04:35 Pulse Ox 99 05/03/22 04:35 FiO2 Intake & Output 05/02/22 05/03/22 05/03/22 18:59 06:59 18:59 Intake Total 0 Output Total 200 200 Balance -200 -200 Intake: Oral 0 Output: Urine 200 200 Other: Voiding Method Toilet Toilet Urinal Urinal # Voids 0 # Bowel Movements 0 - Exam GENERAL: The patient is lying in bed and is in mild acute distress. NEUROLOGICAL: Higher mental function: The patient is awake, alert, oriented to self and time. He stated he was in the hospital but initially did not know but later he stated Micro on second try. He is slow responding. Patient is following simple commands. No aphasia and no neglect. Cranial nerves: The pupils are round, equal and reactive to light . Visual raya are full to confrontation throughout. Extraocular movement is intact no nystagmus is noted. Facial sensation is normal to touch throughout. The facial strength is normal throughout. HTongue is midline and moved [id number] with out any difficulty. No dysarthria is noted. Shoulder shrug is normal bilaterally. Motor: Right shoulder and right upper extremity strength is deferred because of pain and he has sling. Otherwise left upper extremity is 5/5. The lowers had about 4- to 4 proximally bilaterally (appears right slighter stronger than left). Ankles are 5- Bilaterally. Cerebellum: Normal finger to nose bilaterally. Sensation: Sensation is normal to touch throughout. Reflexes (right/left): Patelllar are 3+. Otherwise 2+ throughout except right upper since deferred because of pain. SOME OF THE WORK-UP DURING THIS HOSPITAL VISIT: * MRI of the brain without contrast revealed extensive white matter signal changes, could relate to severe demyelinating disease. There is involvement of the corpus callosum. Microvascular ischemia not excluded. Increased signal in the centrum semiovale bilaterally on the diffusion images could be acute disease. I personally reviewed MRI of the brain. The abnormal signal in the diffusion weighted is possible T2 shine through. On FLAIR images, there is hyperintense signal in the left cerebellum, left posterior temporal, bilateral significant periventricular as well as subcortical white matter lesion, many of them are perpendicular to the lateral ventricle, highly suggestive of demyelinating disease like MS. * MRI of the brain with his reported as multiple foci of abnormal enhancement consistent with the patient multiple sclerosis. I personally reviewed the MRI and I agree with the report. * MRI of the cervical spine is reported as finding may represent abnormal cord signal, there is no evidence of abnormal enhancement however. Degenerative disc disease, formidable encroachment. It is reported that shows some possible increased signal on T2 weighted sequence that's ill-defined over the C3, C4, C5 and possibly C7. I personally reviewed the MRI and I agree with the report and I agree that there possibly is a cord that signal but does not enhance with contrast from the C3 to C6 region. * Carotid Doppler revealed antegrade flow in the vertebral arteries. Less than 10% stenosis of both ICA. * Routine EEG is abnormal. The background slowing suggestive of mild encephalopathy. Otherwise there is no focal slowing, epileptiform form discharges or seizure on the EEG. * 2-D echo with bubble study was technically difficult study for interpretation. Normal left-ventricular systolic function with EF 55-60%. Left atrial size is normal. * Hemoglobin A1c 5.3 on 10/24/2021 * Lipid panel with cholesterol 190, LDL 109, HDL 62 and triglycerides 90. * Patient's B12 480, folate 8.3 and vitamin B6 6. * LAUREN is negative * HIV 1 and 2 is nonreactive. Treponema pallidum antibody is nonreactive * CSF: clear, colorless, 4 nucleated cells, glucose 57 and protein is 67 (normal is 12-60). His opening pressure is 7 and closing is 9 cm H20. * - Labs CBC & Chem 7: 05/02/22 08:37 05/02/22 08:37 Labs: Abnormal Lab Results - Last 24 Hours (Table) 05/02/22 05/02/22 05/02/22 Range/Units 11:39 16:42 20:03 POC Glucose (mg/dL) 213 H 171 H 152 H (70-110) mg/dL 05/03/22 Range/Units 06:14 POC Glucose (mg/dL) 156 H (70-110) mg/dL Microbiology - Last 24 Hours (Table) 04/30/22 10:23 CSF Gram Stain - Preliminary Cerebral Spinal Fluid CSF Culture - Preliminary Assessment and Plan Assessment: * New onset Multiple Sclerosis on imaging (MRI Brain and C-spine with enhancement seen on MRI Brain. * Mild to moderate encephalopathy with some Psychosis likely due to IV steroid---improved after cessation of steroids * Status post fall from legs giving out, with subsequent right shoulder fracture likely due to above. * Altered mental status, with intermittent confusion, possible delirium versus metabolic encephalopathy. Possilby has underlying cognitive impairment due to [employer] demyelinating disease. No seizure on EEG. * Tobacco use Plan: * I started the patient on IV Solu-Medrol 500mg every 12 hours for total of 3-5 days (was started on 04/30) and stopped on 05/02/22 because of worsening confusion/psychiatric. Recommend outpatient neurologist for start of disease modifying therapy. * MS protocol on CSF: +ve for oligoclonal bands, positive for CSF IgG * Dr. Kirk has recommended to continue ASA 81mg daily and Lipitor 20mg daily for stroke prevention but in my opinion he does not have acute or subacute stroke and his lesions are due to Multiple Sclerosis, therefore no need for them. * On B12, folate and B6 replacement. * DVT prophylaxis: Continue heparin 5000 units subcu every 12 hours. * Will defer the rest of medical management to the primary team. * Upon discharge, patient needs to follow-up with Neurologist as outpatient within 1-2 weeks for management of multiple sclerosis and further evaluation of his mentation/cognitive. The plan is discussed with patient and his nurse. Patient is clear for discharge. Please notify neurology team if any further concerns. Dr. Coffman is providing neurology coverage this then Dr. Kirk will start this Friday A.MRichard Ventura M.D. Neuro-Hospitalist Time with Patient: Less than 30
--- NOTE | 2022-05-03 11:02 | P.PN ---
Subjective Progress Note Date: 05/03/22 Leo James, is a 52-year-old male who presented to the [facility] emergency room with a chief complaint of confusion and mental status changes. Patient had a fall backwards few days ago and x-ray of the right shoulder revealed impacted humeral neck fracture, family states that patient was confused. Computed tomography scan of the brain revealed evidence of hypodensity in the right occipital lobe suggestive of an infarct and subtle hypodensity in the right posterior frontal lobe white matter suggestive of lacunar infarct patient and family he denies any previous history of strokes, he was admitted to telemetry floor and neurology consultation was requested. Patient denies any significant past medical history in the past, he denies any history of hypertension hyperlipidemia, or any history of coronary artery disease strokes or seizures in the past, he is not maintained on any home medications, he states that he smokes a few cigarettes per day, he used to smoke more in the past but has been cutting down, he denies any alcohol abuse. He was evaluated in the emergency room vital examination on presentation revealed a temperature of 98.6 pulse 90 respiration 15 blood pressure 102/66 pulse ox 99% on room air Laboratory data revealed a white blood count of 10.8 hemoglobin 13.7 platelet count 163 sodium 136 potassium 4.3 chloride 101 CO2 20 BUN 16 creatinine 1.2 glucose level 119 Patient was admitted to telemetry floor for further evaluation and treatment On 04/28/2022 patient is alert and oriented 3. Patient was evaluated by orthopedic services sling in place patient will follow-up outpatient with orthopedics for further management no surgical intervention at this time. MRI was completed awaiting neurology follow-up review. Current vital signs temp 99.2, heart rate 99, respiratory rate 18, blood pressure 114/60 with a pulse ox of 99% on room air area patient reports improvement with generalized weakness. At this time patient denies chest pain or shortness breath. Patient denies nausea vomiting or diarrhea. Patient denies any urinary burning or frequency. On 04/29/2022 patient is alert, confused in no distress. Patient was evaluated by orthopedic services sling in place patient will follow-up outpatient with orthopedics for further management no surgical intervention at this time. Current vital signs temp 99.2, heart rate 99, respiratory rate 18, blood pressure 114/60 with a pulse ox of 99% on room air area patient reports improvement with generalized weakness. At this time patient denies chest pain or shortness breath. Patient denies nausea vomiting or diarrhea. Patient denies any urinary burning or frequency, MRI results and neurology input reviewed, awaiting MRI with contrast, EEG and LP. On 04/30/2022 patient is alert, confused in no distress. Patient was evaluated by orthopedic services sling in place patient will follow-up outpatient with orthopedics for further management no surgical intervention at this time. patie nt reports improvement with generalized weakness. At this time patient denies chest pain or shortness breath. Patient denies nausea vomiting or diarrhea. Patient denies any urinary burning or frequency, MRI results and neurology input reviewed, awaiting MRI with contrast, EEG and LP results On 05/01/2022 patient was seen and examined on the medical floor he is alert and oriented 3 in no apparent distress he is still complaining of right shoulder pain and complaining of generalized weakness otherwise he denies any complaints there is no fever or chills no headache or dizziness no chest pain no shortness of breath no cough no nausea or vomiting no abdominal pain no diarrhea and no urinary symptoms. At this point neurology established a new diagnosis of multiple sclerosis, patient was started on IV Solu-Medrol 500 mg, will add insulin to sliding scale and Accu-Cheks Physical therapy occupational therapy and consultation for Dr. Mosqueda for possible rehab admission On 05/02/2022 patient was seen and examined on the medical floor he is alert and oriented 3 in no apparent distress he is still complaining of right shoulder pain and complaining of generalized weakness otherwise he denies any complaints there is no fever or chills no headache or dizziness no chest pain no shortness of breath no cough no nausea or vomiting no abdominal pain no diarrhea and no urinary symptoms. At this point neurology established a new diagnosis of multiple sclerosis, patient was started on IV Solu-Medrol 500 mg, will add insulin to sliding scale and Accu-Cheks. Physical therapy occupational therapy and consultation for Dr. Mosqueda for possible rehab admission, awaiting further recommendation continue with PT , OT On 05/03/2022 patient is alert and oriented 3. Patient is resting comfortably in bed. Discussed case with case management discharge planning to inpatient rehab at [facility] in progress. Solu-Medrol has been DC'd due to increased hallucinations per neurology services. At this time patient denies chest pain or shortness of breath. Patient denies nausea vomiting or diarrhea. Patient denies any urinary burning or frequency Objective - Vital Signs Vital signs: Vital Signs Temp 98.8 F 05/03/22 04:35 Pulse 73 05/03/22 04:35 Resp 18 05/03/22 04:35 BP 103/55 05/03/22 04:35 Pulse Ox 99 05/03/22 04:35 FiO2 Intake & Output 05/02/22 05/03/22 05/03/22 18:59 06:59 18:59 Intake Total 0 Output Total 200 200 Balance -200 -200 Intake: Oral 0 Output: Urine 200 200 Other: Voiding Method Toilet Toilet Urinal Urinal # Voids 0 # Bowel Movements 0 - Exam In general patient is alert and oriented x3 in no distress HEENT head normocephalic and atraumatic Neck is supple no JVD no goiter no lymphadenopathy no carotid bruit Chest examination is clear to auscultation no crackles no wheezing Cardiac exam reveals regular heart sounds S1 and S2 no gallops no murmurs Abdomen is soft nontender no organomegaly with normal bowel sounds Extremity exam reveals no edema no cyanosis or clubbing Neurological examination reveals no gross focal deficits - Labs CBC & Chem 7: 05/02/22 08:37 05/02/22 08:37 Labs: Abnormal Lab Results - Last 24 Hours (Table) 05/02/22 05/02/22 05/02/22 Range/Units 11:39 16:42 20:03 POC Glucose (mg/dL) 213 H 171 H 152 H (70-110) mg/dL 05/03/22 Range/Units 06:14 POC Glucose (mg/dL) 156 H (70-110) mg/dL Microbiology - Last 24 Hours (Table) 04/30/22 10:23 CSF Gram Stain - Preliminary Cerebral Spinal Fluid CSF Culture - Preliminary Assessment and Plan Plan: 1. Confusion with mental status changes, cause is not entirely clear, but to be related to areas of stroke on computed tomography scan however, strokes may be old and other causes of mental status changes need to be ruled out, at this time will check urine toxicology screen, check urine analysis and chest x-ray 2. Evidence of 2 areas of stroke on computed tomography scan of the brain, exact timing of the strokes is not clear, patient denies any knowledge of any previous stroke, neurology consultation has been requested, echocardiogram and carotid Doppler were ordered, aspirin and Lipitor were added to medication regimen, will follow closely. 3. Mild leukocytosis, will check chest x-ray and urine analysis. Chest x-ray negative 4. Evidence of impacted right humeral neck fracture, orthopedic consultation requested 5. New diagnosis of multiple sclerosis. Patient was started on Solu-Medrol but this was DC'd per neurology services due to increased hallucinations Medication and labs were reviewed For DVT prophylaxis SCD stockings Discharge planning in progress to [facility] rehab Will follow in a.m.
[2022-05-03 11:29] LABS: Glucose,Whole Blood 131 mg/dL (70-110)
[2022-05-03] MEDS: ENOXAPARIN 40 MG/0.4 ML SYRINGE SQ SCH (11:30)
[2022-05-03] MEDS: PANTOPRAZOLE 40 MG/10 ML VIAL IVP SCH (11:30)
[2022-05-03] MEDS: FOLIC ACID 1 MG TAB PO SCH (11:30)
[2022-05-03] MEDS: PYRIDOXINE 50 MG TAB PO SCH (11:30)
[2022-05-03] MEDS: CYANOCOBALAMIN 500 MCG TAB PO SCH (11:30)
[2022-05-03] MEDS: ACETAMINOPHEN TAB 325 MG TAB PO PRN (11:30)
[2022-05-03 15:14] VITALS: BMI 22.9
[2022-05-03 16:36] LABS: Glucose,Whole Blood 125 mg/dL (70-110)
[2022-05-03 19:44] LABS: Glucose,Whole Blood 112 mg/dL (70-110)
[2022-05-04 05:55] LABS: Glucose,Whole Blood 99 mg/dL (70-110)
[2022-05-04] MEDS: SODIUM CHLORIDE 0.9% 1,000 ML IV SCH (06:47)
[2022-05-04] MEDS: INSULIN ASPART (NovoLOG) 100 UNIT/ML VIAL SQ SCH ×4 (06:47→20:30)
[2022-05-04] MEDS: PYRIDOXINE 50 MG TAB PO SCH (08:52)
[2022-05-04] MEDS: ENOXAPARIN 40 MG/0.4 ML SYRINGE SQ SCH (08:52)
[2022-05-04] MEDS: PANTOPRAZOLE 40 MG/10 ML VIAL IVP SCH (08:53)
[2022-05-04] MEDS: FOLIC ACID 1 MG TAB PO SCH (08:53)
[2022-05-04] MEDS: CYANOCOBALAMIN 500 MCG TAB PO SCH (08:53)
[2022-05-04 11:08] LABS: Basophils % (A) 0 %; Eosinophils % (A) 0 %; HCT 32.4 % (39.0-53.0); HGB 11.4 gm/dL (13.0-17.5); Lymphocytes # (A) 1.7 k/uL (1.0-4.8); Lymphocytes % (A) 22 %; MCH 32.8 pg (25.0-35.0); MCHC 35.3 g/dL (31.0-37.0); MCV 92.9 fL (80.0-100.0); Mean Platelet Volume 8.5; Monocytes # (A) 0.4 k/uL (0-1.0); Monocytes % (A) 6 %; Neutrophils # (A) 5.4 k/uL (1.3-7.7); Neutrophils % (A) 70 %; Platelet Count 158 k/uL (150-450); RBC 3.49 m/uL (4.30-5.90); RDW 13.4 % (11.5-15.5); WBC 7.6 k/uL (3.8-10.6)
[2022-05-04 11:28] LABS: ALT 43 U/L (4-49); AST 41 U/L (17-59); African American GFR (CKD) >90 (>60 ml/min/1.73 sqM); Albumin 3.2 g/dL (3.5-5.0); Alkaline Phosphatase 44 U/L (38-126); Anion Gap 7 mmol/L; Blood Urea Nitrogen 18 mg/dL (9-20); Calcium 8.1 mg/dL (8.4-10.2); Carbon Dioxide 25 mmol/L (22-30); Chloride 106 mmol/L (98-107); Glucose 83 mg/dL (74-99); Non-African American GFR(CKD) >90 (>60 ml/min/1.73 sqM); Potassium 3.6 mmol/L (3.5-5.1); Sodium 138 mmol/L (137-145); Total Bilirubin 1.8 mg/dL (0.2-1.3); Total Protein 5.2 g/dL (6.3-8.2)
[2022-05-04 11:42] LABS: Glucose,Whole Blood 91 mg/dL (70-110)
[2022-05-04] MEDS: ACETAMINOPHEN TAB 325 MG TAB PO PRN (11:51)
--- NOTE | 2022-05-04 12:45 | P.PN ---
Subjective Progress Note Date: 05/04/22 Leo James, is a 52-year-old male who presented to the [facility] emergency room with a chief complaint of confusion and mental status changes. Patient had a fall backwards few days ago and x-ray of the right shoulder revealed impacted humeral neck fracture, family states that patient was confused. Computed tomography scan of the brain revealed evidence of hypodensity in the right occipital lobe suggestive of an infarct and subtle hypodensity in the right posterior frontal lobe white matter suggestive of lacunar infarct patient and family he denies any previous history of strokes, he was admitted to telemetry floor and neurology consultation was requested. Patient denies any significant past medical history in the past, he denies any history of hypertension hyperlipidemia, or any history of coronary artery disease strokes or seizures in the past, he is not maintained on any home medications, he states that he smokes a few cigarettes per day, he used to smoke more in the past but has been cutting down, he denies any alcohol abuse. He was evaluated in the emergency room vital examination on presentation revealed a temperature of 98.6 pulse 90 respiration 15 blood pressure 102/66 pulse ox 99% on room air Laboratory data revealed a white blood count of 10.8 hemoglobin 13.7 platelet count 163 sodium 136 potassium 4.3 chloride 101 CO2 20 BUN 16 creatinine 1.2 glucose level 119 Patient was admitted to telemetry floor for further evaluation and treatment On 04/28/2022 patient is alert and oriented 3. Patient was evaluated by orthopedic services sling in place patient will follow-up outpatient with orthopedics for further management no surgical intervention at this time. MRI was completed awaiting neurology follow-up review. Current vital signs temp 99.2, heart rate 99, respiratory rate 18, blood pressure 114/60 with a pulse ox of 99% on room air area patient reports improvement with generalized weakness. At this time patient denies chest pain or shortness breath. Patient denies nausea vomiting or diarrhea. Patient denies any urinary burning or frequency. On 04/29/2022 patient is alert, confused in no distress. Patient was evaluated by orthopedic services sling in place patient will follow-up outpatient with orthopedics for further management no surgical intervention at this time. Current vital signs temp 99.2, heart rate 99, respiratory rate 18, blood pressure 114/60 with a pulse ox of 99% on room air area patient reports improvement with generalized weakness. At this time patient denies chest pain or shortness breath. Patient denies nausea vomiting or diarrhea. Patient denies any urinary burning or frequency, MRI results and neurology input reviewed, awaiting MRI with contrast, EEG and LP. On 04/30/2022 patient is alert, confused in no distress. Patient was evaluated by orthopedic services sling in place patient will follow-up outpatient with orthopedics for further management no surgical intervention at this time. patie nt reports improvement with generalized weakness. At this time patient denies chest pain or shortness breath. Patient denies nausea vomiting or diarrhea. Patient denies any urinary burning or frequency, MRI results and neurology input reviewed, awaiting MRI with contrast, EEG and LP results On 05/01/2022 patient was seen and examined on the medical floor he is alert and oriented 3 in no apparent distress he is still complaining of right shoulder pain and complaining of generalized weakness otherwise he denies any complaints there is no fever or chills no headache or dizziness no chest pain no shortness of breath no cough no nausea or vomiting no abdominal pain no diarrhea and no urinary symptoms. At this point neurology established a new diagnosis of multiple sclerosis, patient was started on IV Solu-Medrol 500 mg, will add insulin to sliding scale and Accu-Cheks Physical therapy occupational therapy and consultation for Dr. Mosqueda for possible rehab admission On 05/02/2022 patient was seen and examined on the medical floor he is alert and oriented 3 in no apparent distress he is still complaining of right shoulder pain and complaining of generalized weakness otherwise he denies any complaints there is no fever or chills no headache or dizziness no chest pain no shortness of breath no cough no nausea or vomiting no abdominal pain no diarrhea and no urinary symptoms. At this point neurology established a new diagnosis of multiple sclerosis, patient was started on IV Solu-Medrol 500 mg, will add insulin to sliding scale and Accu-Cheks. Physical therapy occupational therapy and consultation for Dr. Mosqueda for possible rehab admission, awaiting further recommendation continue with PT , OT On 05/03/2022 patient is alert and oriented 3. Patient is resting comfortably in bed. Discussed case with case management discharge planning to inpatient rehab at [facility] in progress. Solu-Medrol has been DC'd due to increased hallucinations per neurology services. At this time patient denies chest pain or shortness of breath. Patient denies nausea vomiting or diarrhea. Patient denies any urinary burning or frequency On 05/04/2022 patient is alert and oriented 3. patient reports improvement with generalized weakness. At this time patient denies chest pain or shortness breath. Patient denies nausea vomiting or diarrhea. Patient denies any urinary burning or frequency. he is still complaining of right shoulder pain . neurology established a new diagnosis of multiple sclerosis, patient was started on IV Solu-Medrol 500 mg. Solu-Medrol has been DC'd due to increased hallucinations per neurology services. Objective - Vital Signs Vital signs: Vital Signs Temp 98.0 F 05/04/22 08:55 Pulse 71 05/04/22 08:55 Resp 16 05/04/22 08:55 BP 90/55 05/04/22 08:55 Pulse Ox 97 05/04/22 04:15 FiO2 Intake & Output 05/03/22 05/04/22 05/04/22 18:59 06:59 18:59 Weight 72.575 kg Other: Voiding Method Toilet Toilet Toilet Urinal Urinal Urinal # Voids 1 1 # Bowel Movements 1 - Exam In general patient is alert and oriented x3 in no distress HEENT head normocephalic and atraumatic Neck is supple no JVD no goiter no lymphadenopathy no carotid bruit Chest examination is clear to auscultation no crackles no wheezing Cardiac exam reveals regular heart sounds S1 and S2 no gallops no murmurs Abdomen is soft nontender no organomegaly with normal bowel sounds Extremity exam reveals no edema no cyanosis or clubbing Neurological examination reveals no gross focal deficits - Labs CBC & Chem 7: 05/04/22 09:34 05/04/22 09:34 Labs: Abnormal Lab Results - Last 24 Hours (Table) 05/03/22 05/03/22 05/04/22 Range/Units 16:35 19:42 09:34 RBC 3.49 L (4.30-5.90) m/uL Hgb 11.4 L (13.0-17.5) gm/dL Hct 32.4 L (39.0-53.0) % POC Glucose (mg/dL) 125 H 112 H (70-110) mg/dL Calcium (8.4-10.2) mg/dL Total Bilirubin (0.2-1.3) mg/dL Total Protein (6.3-8.2) g/dL Albumin (3.5-5.0) g/dL 05/04/22 Range/Units 09:34 RBC (4.30-5.90) m/uL Hgb (13.0-17.5) gm/dL Hct (39.0-53.0) % POC Glucose (mg/dL) (70-110) mg/dL Calcium 8.1 L (8.4-10.2) mg/dL Total Bilirubin 1.8 H (0.2-1.3) mg/dL Total Protein 5.2 L (6.3-8.2) g/dL Albumin 3.2 L (3.5-5.0) g/dL Microbiology - Last 24 Hours (Table) 04/30/22 10:23 CSF Gram Stain - Preliminary Cerebral Spinal Fluid CSF Culture - Preliminary Assessment and Plan Plan: 1. Confusion with mental status changes, cause is not entirely clear, but to be related to areas of stroke on computed tomography scan however, strokes may be old and other causes of mental status changes need to be ruled out, at this time will check urine toxicology screen, check urine analysis and chest x-ray 2. Evidence of 2 areas of stroke on computed tomography scan of the brain, exact timing of the strokes is not clear, patient denies any knowledge of any previous stroke, neurology consultation has been requested, echocardiogram and carotid Doppler were ordered, aspirin and Lipitor were added to medication regimen, will follow closely. 3. Mild leukocytosis, will check chest x-ray and urine analysis. Chest x-ray negative 4. Evidence of impacted right humeral neck fracture, orthopedic consultation requested 5. New diagnosis of multiple sclerosis. Patient was started on Solu-Medrol but this was DC'd per neurology services due to increased hallucinations Medication and labs were reviewed For DVT prophylaxis SCD stockings Discharge planning in progress to [facility] rehab Will follow in a.m.
[2022-05-04 16:34] LABS: Glucose,Whole Blood 106 mg/dL (70-110)
[2022-05-04 19:59] LABS: Glucose,Whole Blood 99 mg/dL (70-110)
[2022-05-04] MEDS: MORPHINE SULFATE 4 MG/ML SYRINGE IV PRN (20:39)
[2022-05-05] MEDS: SODIUM CHLORIDE 0.9% 1,000 ML IV SCH (05:57)
[2022-05-05] MEDS: INSULIN ASPART (NovoLOG) 100 UNIT/ML VIAL SQ SCH ×4 (05:57→20:20)
[2022-05-05 05:58] LABS: Glucose,Whole Blood 84 mg/dL (70-110)
[2022-05-05 06:53] LABS: Basophils % (A) 0 %; Eosinophils # (A) 0.1 k/uL (0-0.7); Eosinophils % (A) 1 %; HCT 34.1 % (39.0-53.0); HGB 12.1 gm/dL (13.0-17.5); Lymphocytes # (A) 2.2 k/uL (1.0-4.8); Lymphocytes % (A) 29 %; MCH 32.7 pg (25.0-35.0); MCHC 35.5 g/dL (31.0-37.0); Mean Platelet Volume 8.2; Monocytes # (A) 0.5 k/uL (0-1.0); Monocytes % (A) 6 %; Neutrophils # (A) 4.9 k/uL (1.3-7.7); Neutrophils % (A) 63 %; Platelet Count 179 k/uL (150-450); RBC 3.71 m/uL (4.30-5.90); RDW 13.3 % (11.5-15.5); WBC 7.8 k/uL (3.8-10.6)
[2022-05-05 07:10] LABS: ALT 44 U/L (4-49); AST 27 U/L (17-59); African American GFR (CKD) >90 (>60 ml/min/1.73 sqM); Albumin 3.4 g/dL (3.5-5.0); Alkaline Phosphatase 49 U/L (38-126); Anion Gap 8 mmol/L; Blood Urea Nitrogen 14 mg/dL (9-20); Calcium 8.5 mg/dL (8.4-10.2); Carbon Dioxide 25 mmol/L (22-30); Chloride 104 mmol/L (98-107); Glucose 76 mg/dL (74-99); Non-African American GFR(CKD) >90 (>60 ml/min/1.73 sqM); Potassium 3.6 mmol/L (3.5-5.1); Sodium 137 mmol/L (137-145); Total Protein 5.4 g/dL (6.3-8.2)
[2022-05-05] MEDS: FOLIC ACID 1 MG TAB PO SCH (09:19)
[2022-05-05] MEDS: PYRIDOXINE 50 MG TAB PO SCH (09:19)
[2022-05-05] MEDS: ACETAMINOPHEN TAB 325 MG TAB PO PRN ×2 (09:19→15:52)
[2022-05-05] MEDS: CYANOCOBALAMIN 500 MCG TAB PO SCH (09:19)
[2022-05-05] MEDS: ENOXAPARIN 40 MG/0.4 ML SYRINGE SQ SCH (09:21)
[2022-05-05] MEDS: PANTOPRAZOLE 40 MG/10 ML VIAL IVP SCH (09:21)
--- NOTE | 2022-05-05 10:09 | P.PN ---
Subjective Progress Note Date: 05/05/22 Leo James, is a 52-year-old male who presented to the [facility] emergency room with a chief complaint of confusion and mental status changes. Patient had a fall backwards few days ago and x-ray of the right shoulder revealed impacted humeral neck fracture, family states that patient was confused. Computed tomography scan of the brain revealed evidence of hypodensity in the right occipital lobe suggestive of an infarct and subtle hypodensity in the right posterior frontal lobe white matter suggestive of lacunar infarct patient and family he denies any previous history of strokes, he was admitted to telemetry floor and neurology consultation was requested. Patient denies any significant past medical history in the past, he denies any history of hypertension hyperlipidemia, or any history of coronary artery disease strokes or seizures in the past, he is not maintained on any home medications, he states that he smokes a few cigarettes per day, he used to smoke more in the past but has been cutting down, he denies any alcohol abuse. He was evaluated in the emergency room vital examination on presentation revealed a temperature of 98.6 pulse 90 respiration 15 blood pressure 102/66 pulse ox 99% on room air Laboratory data revealed a white blood count of 10.8 hemoglobin 13.7 platelet count 163 sodium 136 potassium 4.3 chloride 101 CO2 20 BUN 16 creatinine 1.2 glucose level 119 Patient was admitted to telemetry floor for further evaluation and treatment On 04/28/2022 patient is alert and oriented 3. Patient was evaluated by orthopedic services sling in place patient will follow-up outpatient with orthopedics for further management no surgical intervention at this time. MRI was completed awaiting neurology follow-up review. Current vital signs temp 99.2, heart rate 99, respiratory rate 18, blood pressure 114/60 with a pulse ox of 99% on room air area patient reports improvement with generalized weakness. At this time patient denies chest pain or shortness breath. Patient denies nausea vomiting or diarrhea. Patient denies any urinary burning or frequency. On 04/29/2022 patient is alert, confused in no distress. Patient was evaluated by orthopedic services sling in place patient will follow-up outpatient with orthopedics for further management no surgical intervention at this time. Current vital signs temp 99.2, heart rate 99, respiratory rate 18, blood pressure 114/60 with a pulse ox of 99% on room air area patient reports improvement with generalized weakness. At this time patient denies chest pain or shortness breath. Patient denies nausea vomiting or diarrhea. Patient denies any urinary burning or frequency, MRI results and neurology input reviewed, awaiting MRI with contrast, EEG and LP. On 04/30/2022 patient is alert, confused in no distress. Patient was evaluated by orthopedic services sling in place patient will follow-up outpatient with orthopedics for further management no surgical intervention at this time. patie nt reports improvement with generalized weakness. At this time patient denies chest pain or shortness breath. Patient denies nausea vomiting or diarrhea. Patient denies any urinary burning or frequency, MRI results and neurology input reviewed, awaiting MRI with contrast, EEG and LP results On 05/01/2022 patient was seen and examined on the medical floor he is alert and oriented 3 in no apparent distress he is still complaining of right shoulder pain and complaining of generalized weakness otherwise he denies any complaints there is no fever or chills no headache or dizziness no chest pain no shortness of breath no cough no nausea or vomiting no abdominal pain no diarrhea and no urinary symptoms. At this point neurology established a new diagnosis of multiple sclerosis, patient was started on IV Solu-Medrol 500 mg, will add insulin to sliding scale and Accu-Cheks Physical therapy occupational therapy and consultation for Dr. Mosqueda for possible rehab admission On 05/02/2022 patient was seen and examined on the medical floor he is alert and oriented 3 in no apparent distress he is still complaining of right shoulder pain and complaining of generalized weakness otherwise he denies any complaints there is no fever or chills no headache or dizziness no chest pain no shortness of breath no cough no nausea or vomiting no abdominal pain no diarrhea and no urinary symptoms. At this point neurology established a new diagnosis of multiple sclerosis, patient was started on IV Solu-Medrol 500 mg, will add insulin to sliding scale and Accu-Cheks. Physical therapy occupational therapy and consultation for Dr. Mosqueda for possible rehab admission, awaiting further recommendation continue with PT , OT On 05/03/2022 patient is alert and oriented 3. Patient is resting comfortably in bed. Discussed case with case management discharge planning to inpatient rehab at [facility] in progress. Solu-Medrol has been DC'd due to increased hallucinations per neurology services. At this time patient denies chest pain or shortness of breath. Patient denies nausea vomiting or diarrhea. Patient denies any urinary burning or frequency On 05/04/2022 patient is alert and oriented 3. patient reports improvement with generalized weakness. At this time patient denies chest pain or shortness breath. Patient denies nausea vomiting or diarrhea. Patient denies any urinary burning or frequency. he is still complaining of right shoulder pain . neurology established a new diagnosis of multiple sclerosis, patient was started on IV Solu-Medrol 500 mg. Solu-Medrol has been DC'd due to increased hallucinations per neurology services. On 05/05/2022 patient is alert and oriented 3. Anticipate discharge to [facility] tomorrow. No further episodes of hallucination since DC of steroids. Current vital signs temp 97.9, blood pressure 102/61 with pulse ox of 90% on room air Objective - Vital Signs Vital signs: Vital Signs Temp 97.9 F 05/05/22 08:00 Pulse 84 05/05/22 08:00 Resp 16 05/05/22 08:14 BP 85/42 05/05/22 08:00 Pulse Ox 97 05/05/22 08:00 FiO2 Intake & Output 05/04/22 05/05/22 05/05/22 18:59 06:59 18:59 Output Total 200 Balance -200 Output: Urine 200 Other: Voiding Method Toilet Toilet Toilet Urinal Urinal Urinal # Voids 400 - Exam In general patient is alert and oriented x3 in no distress HEENT head normocephalic and atraumatic Neck is supple no JVD no goiter no lymphadenopathy no carotid bruit Chest examination is clear to auscultation no crackles no wheezing Cardiac exam reveals regular heart sounds S1 and S2 no gallops no murmurs Abdomen is soft nontender no organomegaly with normal bowel sounds Extremity exam reveals no edema no cyanosis or clubbing Neurological examination reveals no gross focal deficits - Labs CBC & Chem 7: 05/05/22 06:08 05/05/22 06:08 Labs: Abnormal Lab Results - Last 24 Hours (Table) 05/04/22 05/04/22 05/05/22 Range/Units 09:34 09:34 06:08 RBC 3.49 L 3.71 L (4.30-5.90) m/uL Hgb 11.4 L 12.1 L (13.0-17.5) gm/dL Hct 32.4 L 34.1 L (39.0-53.0) % Calcium 8.1 L (8.4-10.2) mg/dL Total Bilirubin 1.8 H (0.2-1.3) mg/dL Total Protein 5.2 L (6.3-8.2) g/dL Albumin 3.2 L (3.5-5.0) g/dL 05/05/22 Range/Units 06:08 RBC (4.30-5.90) m/uL Hgb (13.0-17.5) gm/dL Hct (39.0-53.0) % Calcium (8.4-10.2) mg/dL Total Bilirubin 2.0 H (0.2-1.3) mg/dL Total Protein 5.4 L (6.3-8.2) g/dL Albumin 3.4 L (3.5-5.0) g/dL Microbiology - Last 24 Hours (Table) 04/30/22 10:23 CSF Gram Stain - Final Cerebral Spinal Fluid CSF Culture - Final Assessment and Plan Plan: 1. Confusion with mental status changes, cause is not entirely clear, but to be related to areas of stroke on computed tomography scan however, strokes may be old and other causes of mental status changes need to be ruled out, at this time will check urine toxicology screen, check urine analysis and chest x-ray 2. Evidence of 2 areas of stroke on computed tomography scan of the brain, exact timing of the strokes is not clear, patient denies any knowledge of any previous stroke, neurology consultation has been requested, echocardiogram and carotid Doppler were ordered, aspirin and Lipitor were added to medication regimen, will follow closely. 3. Mild leukocytosis, will check chest x-ray and urine analysis. Chest x-ray negative 4. Evidence of impacted right humeral neck fracture, orthopedic consultation requested 5. New diagnosis of multiple sclerosis. Patient was started on Solu-Medrol but this was DC'd per neurology services due to increased hallucinations Medication and labs were reviewed For DVT prophylaxis Lovenox Discharge planning in progress to [facility] rehab Will follow in a.m.
[2022-05-05 11:42] LABS: Glucose,Whole Blood 96 mg/dL (70-110)
[2022-05-05 16:31] LABS: Glucose,Whole Blood 117 mg/dL (70-110)
[2022-05-05 20:19] LABS: Glucose,Whole Blood 88 mg/dL (70-110)
[2022-05-06 02:34] LABS: Glucose,Whole Blood 88 mg/dL (70-110)
[2022-05-06] MEDS: ACETAMINOPHEN TAB 325 MG TAB PO PRN ×2 (02:58→09:08)
[2022-05-06] MEDS: SODIUM CHLORIDE 0.9% 1,000 ML IV SCH (06:17)
[2022-05-06 06:27] LABS: Glucose,Whole Blood 97 mg/dL (70-110)
[2022-05-06] MEDS: INSULIN ASPART (NovoLOG) 100 UNIT/ML VIAL SQ SCH (07:04)
[2022-05-06] MEDS: FOLIC ACID 1 MG TAB PO SCH (09:07)
[2022-05-06] MEDS: PYRIDOXINE 50 MG TAB PO SCH (09:08)
[2022-05-06] MEDS: PANTOPRAZOLE 40 MG/10 ML VIAL IVP SCH (09:08)
[2022-05-06] MEDS: CYANOCOBALAMIN 500 MCG TAB PO SCH (09:08)
[2022-05-06] MEDS: ENOXAPARIN 40 MG/0.4 ML SYRINGE SQ SCH (09:08)
[2022-05-06 09:12] VITALS: RESP 18; TEMP 97.9
[2022-05-06 09:33] LABS: Basophils % (A) 0 %; Eosinophils # (A) 0.3 k/uL (0-0.7); Eosinophils % (A) 3 %; HCT 34.7 % (39.0-53.0); HGB 12.1 gm/dL (13.0-17.5); Lymphocytes # (A) 1.9 k/uL (1.0-4.8); Lymphocytes % (A) 22 %; MCH 31.6 pg (25.0-35.0); MCHC 34.8 g/dL (31.0-37.0); MCV 90.9 fL (80.0-100.0); Mean Platelet Volume 8.3; Monocytes # (A) 0.5 k/uL (0-1.0); Monocytes % (A) 6 %; Neutrophils % (A) 68 %; Platelet Count 235 k/uL (150-450); RBC 3.82 m/uL (4.30-5.90); RDW 13.7 % (11.5-15.5); WBC 8.9 k/uL (3.8-10.6)
[2022-05-06 09:43] LABS: ALT 34 U/L (4-49); AST 17 U/L (17-59); African American GFR (CKD) >90 (>60 ml/min/1.73 sqM); Albumin 3.4 g/dL (3.5-5.0); Alkaline Phosphatase 54 U/L (38-126); Anion Gap 8 mmol/L; Blood Urea Nitrogen 16 mg/dL (9-20); Calcium 8.4 mg/dL (8.4-10.2); Carbon Dioxide 24 mmol/L (22-30); Chloride 104 mmol/L (98-107); Glucose 86 mg/dL (74-99); Non-African American GFR(CKD) >90 (>60 ml/min/1.73 sqM); Potassium 3.7 mmol/L (3.5-5.1); Sodium 136 mmol/L (137-145); Total Bilirubin 2.4 mg/dL (0.2-1.3); Total Protein 5.5 g/dL (6.3-8.2)
--- NOTE | 2022-05-06 09:58 | P.DS ---
Providers Date of admission: 04/27/22 06:58 Expected date of discharge: 05/06/22 Attending physician: Kathleen Almaguer Consults: 04/27/22 06:58 Consult Physician Routine Consulting Provider: Hari Cast Consult Reason/Comments: humerus fracture Do you want consulting provider notified?: Yes Consult Physician Routine Consulting Provider: Thelma Kirk Consult Reason/Comments: CVA Do you want consulting provider notified?: Yes 05/01/22 15:02 Consult Physician Routine Consulting Provider: Vick Mosqueda Consult Reason/Comments: MS, fall with R Humerus neck fracture Do you want consulting provider notified?: Yes Primary care physician: Teresa Owens Hospital Course: Diagnosis on discharge: 1. Confusion with mental status changes, cause is not entirely clear, but to be related to areas of stroke on computed tomography scan however, strokes may be old and other causes of mental status changes need to be ruled out, at this time will check urine toxicology screen, check urine analysis and chest x-ray 2. Evidence of 2 areas of stroke on computed tomography scan of the brain, exact timing of the strokes is not clear, patient denies any knowledge of any previous stroke, neurology consultation has been requested, echocardiogram and carotid Doppler were ordered, aspirin and Lipitor were added to medication regimen, will follow closely. 3. Mild leukocytosis, will check chest x-ray and urine analysis. Chest x-ray negative 4. Evidence of impacted right humeral neck fracture, orthopedic consultation requested 5. New diagnosis of multiple sclerosis. Patient was started on Solu-Medrol but this was DC'd per neurology services due to increased hallucinations Hospital course: Leo James, is a 52-year-old male who presented to the [facility] emergency room with a chief complaint of confusion and mental status changes. Patient had a fall backwards few days ago and x-ray of the right shoulder revealed impacted humeral neck fracture, family states that patient was confused. Computed tomography scan of the brain revealed evidence of hypodensity in the right occipital lobe suggestive of an infarct and subtle hypodensity in the right posterior frontal lobe white matter suggestive of lacunar infarct patient and family he denies any previous history of strokes, he was admitted to telemetry floor and neurology consultation was requested. Patient denies any significant past medical history in the past, he denies any history of hypertension hyperlipidemia, or any history of coronary artery disease strokes or seizures in the past, he is not maintained on any home medications, he states that he smokes a few cigarettes per day, he used to smoke more in the past but has been cutting down, he denies any alcohol abuse. He was evaluated in the emergency room vital examination on presentation revealed a temperature of 98.6 pulse 90 respiration 15 blood pressure 102/66 pul se ox 99% on room air Laboratory data revealed a white blood count of 10.8 hemoglobin 13.7 platelet count 163 sodium 136 potassium 4.3 chloride 101 CO2 20 BUN 16 creatinine 1.2 glucose level 119 Patient was admitted to telemetry floor for further evaluation and treatment On 04/28/2022 patient is alert and oriented 3. Patient was evaluated by orthopedic services sling in place patient will follow-up outpatient with orthopedics for further management no surgical intervention at this time. MRI was completed awaiting neurology follow-up review. Current vital signs temp 99.2, heart rate 99, respiratory rate 18, blood pressure 114/60 with a pulse ox of 99% on room air area patient reports improvement with generalized weakness. At this time patient denies chest pain or shortness breath. Patient denies nausea vomiting or diarrhea. Patient denies any urinary burning or frequency. On 04/29/2022 patient is alert, confused in no distress. Patient was evaluated by orthopedic services sling in place patient will follow-up outpatient with orthopedics for further management no surgical intervention at this time. Current vital signs temp 99.2, heart rate 99, respiratory rate 18, blood pr essure 114/60 with a pulse ox of 99% on room air area patient reports improvement with generalized weakness. At this time patient denies chest pain or shortness breath. Patient denies nausea vomiting or diarrhea. Patient denies any urinary burning or frequency, MRI results and neurology input reviewed, awaiting MRI with contrast, EEG and LP. On 04/30/2022 patient is alert, confused in no distress. Patient was evaluated by orthopedic services sling in place patient will follow-up outpatient with orthopedics for further management no surgical intervention at this time. patient reports improvement with generalized weakness. At this time patient denies chest pain or shortness breath. Patient denies nausea vomiting or diarrhea. Patient denies any urinary burning or frequency, MRI results and neurology input reviewed, awaiting MRI with contrast, EEG and LP results On 05/01/2022 patient was seen and examined on the medical floor he is alert and oriented 3 in no apparent distress he is still complaining of right shoulder pain and complaining of generalized weakness otherwise he denies any complaints there is no fever or chills no headache or dizziness no chest pain no shortness of breath no cough no nausea or vomiting no abdominal pain no diarrhea and no urinary symptoms. At this point neurology established a new diagnosis of multiple sclerosis, patient was started on IV Solu-Medrol 500 mg, will add insulin to sliding scale and Accu-Cheks Physical therapy occupational therapy and consultation for Dr. Mosqueda for possible rehab admission On 05/02/2022 patient was seen and examined on the medical floor he is alert and oriented 3 in no apparent distress he is still complaining of right shoulder pain and complaining of generalized weakness otherwise he denies any complaints there is no fever or chills no headache or dizziness no chest pain no shortness of breath no cough no nausea or vomiting no abdominal pain no diarrhea and no urinary symptoms. At this point neurology established a new diagnosis of multiple sclerosis, patient was started on IV Solu-Medrol 500 mg, will add insulin to sliding scale and Accu-Cheks. Physical therapy occupational therapy and consultation for Dr. Mosqueda for possible rehab admission, awaiting further recommendation continue with PT , OT On 05/03/2022 patient is alert and oriented 3. Patient is resting comfortably in bed. Discussed case with case management discharge planning to inpatient rehab at [facility] in progress. Solu-Medrol has been DC'd due to increased hallucinations per neurology services. At this time patient denies chest pain or shortness of breath. Patient denies nausea vomiting or diarrhea. Patient denies any urinary burning or frequency On 05/04/2022 patient is alert and oriented 3. patient reports improvement with generalized weakness. At this time patient denies chest pain or shortness breath. Patient denies nausea vomiting or diarrhea. Patient denies any urinary burning or frequency. he is still complaining of right shoulder pain . neurology established a new diagnosis of multiple sclerosis, patient was started on IV Solu-Medrol 500 mg. Solu-Medrol has been DC'd due to increased hallucinations per neurology services. On 05/05/2022 patient is alert and oriented 3. Anticipate discharge to [facility] tomorrow. No further episodes of hallucination since DC of steroids. Current vital signs temp 97.9, blood pressure 102/61 with pulse ox of 90% on room air Plan - Discharge Summary Discharge Rx Participant: Yes New Discharge Prescriptions: New Folic Acid 1 mg PO DAILY tab HYDROcodone/APAP 10-325MG [[place] 10-325] 1 tab PO Q6HR PRN 3 Days #12 tab PRN Reason: Pain Cyanocobalamin [Vitamin B-12] 1,000 mcg PO DAILY tab Ascorbic Acid [Vitamin C] 500 mg PO DAILY tab Zinc Sulfate [Orazinc] 220 mg PO DAILY cap Acetaminophen Tab [Tylenol] 650 mg PO Q6HR PRN tab PRN Reason: Mild Pain Or Fever > 100.5 Pyridoxine [Vitamin B-6] 50 mg PO DAILY tab Cholecalciferol [Vitamin D3 (25 Mcg = 1000 Iu)] 25 mcg PO DAILY tab Discharge Medication List Acetaminophen Tab [Tylenol] 650 mg PO Q6HR PRN tab 05/06/22 [Rx] Ascorbic Acid [Vitamin C] 500 mg PO DAILY tab 05/06/22 [Rx] Cholecalciferol [Vitamin D3 (25 Mcg = 1000 Iu)] 25 mcg PO DAILY tab 05/06/22 [Rx] Cyanocobalamin [Vitamin B-12] 1,000 mcg PO DAILY tab 05/06/22 [Rx] Folic Acid 1 mg PO DAILY tab 05/06/22 [Rx] HYDROcodone/APAP 10-325MG [[place] 10-325] 1 tab PO Q6HR PRN 3 Days #12 tab 05/06/22 [Rx] Pyridoxine [Vitamin B-6] 50 mg PO DAILY tab 05/06/22 [Rx] Zinc Sulfate [Orazinc] 220 mg PO DAILY cap 05/06/22 [Rx] Follow up Appointment(s)/Referral(s): William Romero MD [STAFF PHYSICIAN] - 1-2 days Patient Instructions/Handouts: Arm Fracture in Adults (ED) Activity/Diet/Wound Care/Special Instructions: Follow-up with orthopedic surgery for right humerus fracture Maintain sling to RUE at all times. remain non-weight bearing to RUE. Pain medication as needed. follow up with Dr. Romero, Orthopedic Surgeon in office for further evaluation Discharge/Stand Alone Forms: Anes Pain/[place] Instructions
[2022-05-06] MEDS ORDERED: CHOLECALCIFEROL 25 MCG (1000 IU) TABLET PO SCH (10:00)
[2022-05-06] MEDS ORDERED: ASCORBIC ACID 500 MG TAB PO SCH (10:00)
[2022-05-06] MEDS ORDERED: ZINC SULFATE 220 MG CAP PO SCH (10:00)
[2022-05-06 11:36] LABS: Glucose,Whole Blood 95 mg/dL (70-110)
[2022-05-06 12:34] VITALS: BP 95/63; PULSE 77
== END 2022-05-06 13:09 | DRG 58 ==
LOC: EC 05:07 → 3SCARD 06:58
PROVIDERS: ADMIT Internal Medicine; ATTEND Internal Medicine
PROC: 009U3ZX Drainage of Spinal Canal, Percutaneous Approach, Diagnostic (ICD-10-PCS; principal; 2022-04-30 10:00)
DX: G35 Multiple sclerosis (principal); G92.8 Other toxic encephalopathy; S42.201A Unspecified fracture of upper end of right humerus, initial encounter for closed fracture; F17.210 Nicotine dependence, cigarettes, uncomplicated; D72.829 Elevated white blood cell count, unspecified; F41.9 Anxiety disorder, unspecified; T38.0X5A Adverse effect of glucocorticoids and synthetic analogues, initial encounter; Y92.230 Patient room in hospital as the place of occurrence of the external cause; F29 Unspecified psychosis not due to a substance or known physiological condition; W18.39XA Other fall on same level, initial encounter; R26.9 Unspecified abnormalities of gait and mobility; Z86.73 Personal history of transient ischemic attack (TIA), and cerebral infarction without residual deficits; Z71.3 Dietary counseling and surveillance; R51.9 Headache, unspecified; Z28.310 Unvaccinated for COVID-19; Z28.21 Immunization not carried out because of patient refusal
CPT/HCPCS: 62270; 70450; 70551; 70552; 71046; 72125; 72156; 80048; 80053; 80306; 80320; 81001; 82040; 82042; 82550; 82746; 82784; 82945; 83036; 83916; 84157; 85025; 86038; 86780; 87070; 87205; 87390; 87635; 87801; 89050; 93005; 93306; 93880; 95816; 96374; 96376; 99152; 99285

== ENCOUNTER → 2022-11-20 | Outpatient (CLI) | payer OTHER ==
[2022-11-21 02:24] LABS: Basophils # (A) 0.09 X 10*3/uL (0.00-0.10); Basophils % (A) 1.1 %; Eosinophils # (A) 0.25 X 10*3/uL (0.04-0.35); Eosinophils % (A) 3.2 %; HCT 44.1 % (39.6-50.0); HGB 14.4 g/dL (13.0-17.0); Immature Grans, Automated 0.4 %; Lymphocytes # (A) 2.87 X 10*3/uL (0.90-5.00); Lymphocytes % (A) 36.6 %; MCH 31.1 pg (27.0-32.0); MCHC 32.7 g/dL (32.0-37.0); MCV 95.2 fL (80.0-97.0); Mean Platelet Volume 9.7 fL (9.5-12.2); Monocytes # (A) 0.59 X 10*3/uL (0.20-1.00); Monocytes % (A) 7.5 %; NRBC Per 100 WBC 0 /100 WBCS (0.0-0.0); Neutrophils # (A) 4.02 X 10*3/uL (1.80-7.70); Neutrophils % (A) 51.2 %; Platelet Count 201 X 10*3/uL (140-440); RBC 4.63 X 10*6/uL (4.40-5.60); RDW 13.9 % (11.5-14.5); WBC 7.85 X 10*3/uL (4.50-10.00)
[2022-11-21 03:07] LABS: African American GFR (CKD) 113.2 (60.0-200.0); Albumin 4.5 g/dL (3.8-4.9); Albumin/Globulin Ratio 2.15 (1.60-3.17); Anion Gap 11.2 mmol/L (10.00-18.00); BUN/Creat Ratio 14.74 Ratio (12.00-20.00); Blood Urea Nitrogen 13.1 mg/dL (9.0-27.0); Calcium 9.9 mg/dL (8.7-10.3); Carbon Dioxide 25.7 mmol/L (20.0-27.5); Globulin 2.1 g/dL (1.6-3.3); Non-African American GFR(CKD) 97.7 (60.0-200.0); Potassium 4.7 mmol/L (3.5-5.5); Total Bilirubin 1.6 mg/dL (0.30-1.20); Total Protein 6.5 g/dL (6.2-8.2)
== END | disposition home or self-care (01) ==
LOC: LABWHC1 16:09
PROVIDERS: ATTEND Psychiatry & Neurology Neurology
DX: G35 Multiple sclerosis (principal)
CPT/HCPCS: 36415; 80053; 82306; 85025

== ENCOUNTER → 2022-12-25 | Outpatient (CLI) | payer OTHER ==
[2022-12-26 02:37] LABS: ALT 50 U/L (10-49); AST 15 U/L (14-35); Albumin 4.7 d/dL (3.8-4.9); Albumin/Globulin Ratio 2.04 Ratio (1.60-3.17); Alkaline Phosphatase 68 U/L (41-126); Blood Urea Nitrogen 18.9 mg/dL (9.0-27.0); Calcium 10.3 mg/dL (8.7-10.3); Carbon Dioxide 26.5 mmol/L (21.6-31.8); Chloride 99 mmol/L (96-109); Globulin 2.3 d/dL (1.6-3.3); Glucose 139 mg/dL (70-110); Potassium 5.5 mmol/L (3.5-5.5); Sodium 139 mmol/L (135-145); Total Bilirubin 1.4 mg/dL (0.3-1.2)
[2022-12-26 07:39] LABS: Basophils # (A) 0.07 X 10*3/uL (0.00-0.10); Basophils % (A) 0.5 %; Eosinophils # (A) 0.01 X 10*3/uL (0.04-0.35); Eosinophils % (A) 0.1 %; HCT 48.2 % (39.6-50.0); HGB 15.8 d/dL (12.0-15.0); Lymphocytes # (A) 2.24 X 10*3/uL (0.90-5.00); Lymphocytes % (A) 15.4 %; MCH 31.7 pg (27.0-32.0); MCHC 32.8 d/dL (32.0-37.0); MCV 96.8 FL (80.0-97.0); Mean Platelet Volume 9.8 FL (9.5-12.2); Monocytes # (A) 0.71 X 10*3/uL (0.20-1.00); Monocytes % (A) 4.9 %; NRBC Per 100 WBC 0 X 10*3/uL (0.00-0.01); Neutrophils # (A) 10.79 X 10*3/uL (1.80-7.70); Neutrophils % (A) 74.3 %; Platelet Count 262 X 10*3/uL (140-440); RBC 4.98 X 10*6/uL (4.40-5.60); WBC 14.51 X 10*3/uL (4.50-10.00)
== END | disposition home or self-care (01) ==
LOC: LABWHC1 15:58
PROVIDERS: ATTEND Physician Assistant
DX: G35 Multiple sclerosis (principal); G62.9 Polyneuropathy, unspecified
CPT/HCPCS: 36415; 80053; 82306; 82607; 84207; 85025